=== PATIENT | male | born 1995 | race American Indian/Alaskan Native ===

== ENCOUNTER 2017-08-06 13:22 | Inpatient (IN) | payer BC, MEDICAID ==
[2017-08-06 14:26] VITALS: BMI 21.2
--- NOTE | 2017-08-06 15:03 | RAD ---
HISTORY: pes eval COMPARISON: No prior. FINDINGS: LUNGS: No active pulmonary disease. PLEURA: No significant pleural effusion identified, no pneumothorax apparent. CARDIOVASCULAR: Normal. OSSEOUS STRUCTURES: No significant abnormalities. VISUALIZED UPPER ABDOMEN: Normal. OTHER FINDINGS: None. IMPRESSION: No active disease.
[2017-08-06 17:08] LABS: BASO # 0.01 K/mm3 (0.0-2.0); BASO % 0.2 % (0.0-3.0); EOS # 0.1 (0.0-0.7); EOS % 2.2 % (1.5-5.0); GRAN # 2.75 (1.4-6.5); LYMPH # 2.7 (1.2-3.4); LYMPH % 44.6 % (22.0-35.0); MEAN CELL VOLUME 86.2 fl (80.0-105.0); MEAN CORPUSCULAR HEMOGLOBIN 28.7 pg (25.0-35.0); MEAN CORPUSCULAR HGB CONC 33.3 g/dl (31.0-37.0); MEAN PLATELET VOLUME 9.2 fl (7.0-11.0); MONO # 0.4 (0.1-0.6); RBC 4.87 10^6/uL (3.5-6.1); RED CELL DISTRIBUTION WIDTH 12.6 % (11.5-14.5)
[2017-08-06 17:15] LABS: ALB/GLOB RATIO 1.3 (1.1-1.8); ALBUMIN 3.8 g/dL (3.0-4.8); ALT/SGPT 24 U/L (7-56); AST/SGOT 36 U/L (17-59); BLOOD UREA NITROGEN 9 mg/dL (7-21); CALCIUM 9.7 mg/dL (8.4-10.5); GFR AFRICAN-AMERICAN > 60; GFR NON-AFRICAN AMERICAN > 60
--- NOTE | 2017-08-06 17:20 | ED PDOC ---
Arrival/HPI - General Chief Complaint: Psychiatric Evaluation Time Seen by Provider: 08/06/17 14:33 Historian: Patient - History of Present Illness Narrative History of Present Illness (Text): 08/06/17 17:14 21-year-old male presents today with anxiety and depression with thoughts of suicide. Patient denies headache dizziness or weakness. Denies fevers or chills. No nausea vomiting diarrhea constipation. Denies urinary symptoms. Patient denies alcohol use. Patient denies suicidal plan. No other complaints Symptom Onset: Gradual Past Medical History - Provider Review Nursing Documentation Reviewed: Yes - Travel History Have you recently traveled outside [place] w/in the past 3 mons?: No - Infectious Disease Hx of Infectious Diseases: None - Musculoskeletal/Rheumatological Other/Comment: Scoliosis - Psychiatric Hx Substance Use: Yes - Anesthesia Hx Anesthesia: No Family/Social History - Physician Review Nursing Documentation Reviewed: Yes Family/Social History: Unknown Family HX Smoking Status: Light Smoker < 10 Cigarettes Daily Hx Alcohol Use: Yes Frequency of alcohol use: Socially Hx Substance Use: Yes Substance used: marijuana Allergies/Home Meds Allergies/Adverse Reactions: Allergies No Known Allergies Allergy (Verified 08/06/17 14:08) Home Medications: Home Meds Medication Instructions Recorded Confirmed No Known Home Med 08/06/17 08/06/17 Review of Systems - Review of Systems Constitutional: absent: Fatigue, Fevers Respiratory: absent: SOB, Cough Cardiovascular: absent: Chest Pain, Palpitations Gastrointestinal: absent: Abdominal Pain, Nausea, Vomiting Genitourinary Male: absent: Dysuria Musculoskeletal: absent: Arthralgias, Back Pain Skin: absent: Rash, Pruritis Psychiatric: Anxiety, Depression, Suicidal Ideation Physical Exam Vital Signs Reviewed: Yes Vital Signs Temp Pulse Resp BP Pulse Ox 08/06/17 16:26 98.1 F 90 18 122/70 100 08/06/17 14:15 98.9 F 99 H 18 134/89 99 Temperature: Afebrile Blood Pressure: Normal Pulse: Regular Respiratory Rate: Normal Appearance: Positive for: Well-Appearing, Non-Toxic, Comfortable Pain Distress: None Mental Status: Positive for: Alert and Oriented X 3 - Systems Exam Head: Present: Atraumatic Mouth: Present: Moist Mucous Membranes Neck: Present: Normal Range of Motion Respiratory/Chest: Present: Clear to Auscultation, Good Air Exchange. No: Respiratory Distress, Accessory Muscle Use Cardiovascular: Present: Regular Rate and Rhythm, Normal S1, S2. No: Murmurs Abdomen: No: Tenderness, Rebound, Guarding Upper Extremity: Present: Normal Inspection Lower Extremity: Present: Normal Inspection. No: Edema Neurological: Present: GCS=15, Speech Normal Skin: Present: Warm, Dry, Normal Color. No: Rashes Psychiatric: Present: Alert, Oriented x 3, Depressed Mood, Suicidal Ideation Medical Decision Making ED Course and Treatment: 08/06/17 17:15 Patient is nontoxic well-appearing in no distress vital signs are stable. CBC WNL CMP WNL Tylenol WNL Salicylate WNL Alcohol level WNL Urine drug screen + marijuana UA; wnl cxr: wnl ekg sinus bradycardia at 55 bpm normal axis normal intervals no ST elevations pt is medically cleared for PES evaluation Patient was seen and evaluated by PES screener. pt signed voluntarily to psychiatric floor for depression Impression; depression Admit behavioral health floor Reassessment Condition: Re-examined - Lab Interpretations Lab Results: 08/06/17 16:50 08/06/17 16:50 Lab Results 08/06/17 17:32: Urine Opiates Screen Negative, Urine Methadone Screen Negative, Ur Barbiturates Screen Negative, Ur Phencyclidine Scrn Negative, Ur Amphetamines Screen Negative, U Benzodiazepines Scrn Negative, U Oth Cocaine Metabols Negative, U Cannabinoids Screen Positive H 08/06/17 17:32: Urine Color Yellow, Urine Appearance Clear, Urine pH 6.0, Ur Specific Moroni 1.025, Urine Protein Negative, Urine Glucose (UA) Negative, Urine Ketones 15 H, Urine Blood Negative, Urine Nitrate Negative, Urine Bilirubin Negative, Urine Urobilinogen 0.2, Ur Leukocyte Esterase Negative 08/06/17 16:50: Alcohol, Quantitative < 10 08/06/17 16:50: Sodium 139, Potassium 3.9, Chloride 103, Carbon Dioxide 27, Anion Gap 13, BUN 9, Creatinine 0.7 L, Est GFR ( Amer) > 60, Est GFR (Non -Af Amer) > 60, Random Glucose 86, Calcium 9.7, Total Bilirubin 0.3, AST 36, ALT 24, Alkaline Phosphatase 56, Total Protein 6.8, Albumin 3.8, Globulin 3.0, Albumin/Globulin Ratio 1.3 08/06/17 16:50: WBC 6.0, RBC 4.87, Hgb 14.0, Hct 42.0, MCV 86.2, MCH 28.7, MCHC 33.3, RDW 12.6, Plt Count 218, MPV 9.2, Gran % 46.0 L, Lymph % (Auto) 44.6 H, [place] % (Auto) 7.0 H, Eos % (Auto) 2.2, Baso % (Auto) 0.2, Gran # 2.75, Lymph # ( Auto) 2.7, [place] # (Auto) 0.4, Eos # (Auto) 0.1, Baso # (Auto) 0.01 - RAD Interpretation Radiology Orders: 08/06/17 14:33 CHEST PORTABLE [RAD] Stat Disposition/Present on Arrival - Present on Arrival Any Indicators Present on Arrival: No History of DVT/PE: No History of Uncontrolled Diabetes: No Urinary Catheter: No History of Decub. Ulcer: No History Surgical Site Infection Following: None - Disposition Have Diagnosis and Disposition been Completed?: Yes Diagnosis: Depression Disposition: HOSPITALIZED Disposition Time: 18:44 Patient Plan: Admission Patient Problems: Current Active Problems Problem Status Onset Depression Acute Condition: FAIR Referrals: Neli Macedo MD [Primary Care Provider] - Follow up with primary Forms: [employer] ([employer])
[2017-08-06 17:44] LABS: URINE BILIRUBIN NEGATIVE (NEGATIVE); URINE BLOOD NEGATIVE (NEGATIVE); URINE GLUCOSE (UA) NEGATIVE (NEGATIVE); URINE LEUKOCYTE ESTERASE NEGATIVE Leu/uL (NEGATIVE); URINE NITRATE NEGATIVE (NEGATIVE); URINE PROTEIN NEGATIVE mg/dL (<30 mg/dL); URINE UROBILINOGEN 0.2 E.U./dL (<1 E.U./dL)
[2017-08-06 17:56] LABS: URINE APPEARANCE CLEAR (CLEAR); URINE COLOR YELLOW (YELLOW)
[2017-08-06 18:33] LABS: BARBITURATES, UR NEGATIVE (NEGATIVE); BENZODIAZEPINES, UR NEGATIVE (NEGATIVE); OPIATES, UR NEGATIVE (NEGATIVE); PHENCYCLIDINE, UR NEGATIVE (NEGATIVE)
[2017-08-06 18:44] LABS: ACETAMINOPHEN < 10.0 ug/ml (10.0-20.0); SALICYLATE < 1 mg/dL (2.0-20.0)
[2017-08-06] MEDS ORDERED: Magnesium Hydroxide Susp 30 ml UD PO PRN (20:17)
[2017-08-06] MEDS ORDERED: Alum-Mag Hydrox-Simethicone Susp (30 mL) PO PRN (20:17)
--- NOTE | 2017-08-07 00:29 | PCM.BM ---
<Lázaro Alvarenga - Last Filed: 08/07/17 00:32> Treatment Plan Problems - Problems identified on initial assessmt SUICIDAL IDEATION Date Initiated: 08/06/17 Time Initiated: 21:00 Assessment reference: NA Status: Active DEPRESSION Date Initiated: 08/06/17 Time Initiated: 21:00 Assessment reference: NA Status: Active SUBSTABCE ABUSE Date Initiated: 08/06/17 Time Initiated: 21:00 Assessment reference: NA Status: Active Treatment assets and liabiliti Patient Assests: adapts well, cooperative, educated, motivated, self-reliant, ADL independent, physically healthy, good support system, negotiates basic needs , cognitively intact Patient Liabilities: live alone, financial problems, substance abuse - Milieu Protocol Maintain good personal hygiene: daily Encourage regular showers, daily Remind patient to perform daily oral care, daily Assist patient to perform ADL's Maintain personal safety: every shift Educate patient to report safety concerns to staff, every shift Monitor environment for contraband/sharps Medication safety: Monitor for expected outcome, potential side effects: every shift, Assess barriers to learning: every shift, Assess readiness for medication education: every shift Family Contact Family involvement: Family/SO is involved Family contact: Patient agrees to contact <Falguni Campbell - Last Filed: 08/07/17 10:12> - Diagnosis (1) Depression Status: Acute Interventions: Psychoeducation Psychopharmacology/adjustment of medications as needed/ monitoring possible side effects Evaluate pt on daily basis Compliance with medications and follow up appointments Suicide and homicide risk assessment and prevention Relapse prevention Reduction of symptoms Improve functional status Family involvement As outpatient: cognitive behavioral therapy 08/07/17 10:12 <Maria C Burgos - Last Filed: 08/08/17 08:18> Family Contact Family involvement: Famliy/SO not involved <Kaur Gomez - Last Filed: 08/08/17 12:15>
[2017-08-07 07:58] LABS: GLUCOSE,FASTING 86 mg/dL (65-110); HDL CHOLESTEROL 53 mg/dL (29-60)
[2017-08-07 08:09] LABS: LDL CHOLESTEROL 66 mg/dL (0-129)
--- NOTE | 2017-08-07 12:35 | CARD ---
APPROVED REPORT EKG Measurement Heart [id number] <Conclusion> Sinus bradycardia Early repolarization Otherwise normal ECG
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
--- NOTE | 2017-08-07 21:02 | CON ---
DATE: HISTORY OF PRESENT ILLNESS: I was called up to the Psychiatric Unit to see this young man. He is very nice. I saw him in his room. He is a 21-year-old male, who presents with anxiety, depression, thoughts of suicide and he is here in the Psychiatric Unit. He is feeling okay, not great. PAST MEDICAL HISTORY: He has scoliosis in the past. He has substance abuse. FAMILY HISTORY: Unknown family history. SOCIAL HISTORY: Still smoking cigarettes, still drinking alcohol, does marijuana. ALLERGIES: No known drug allergies. MEDICATIONS: No medications at home. REVIEW OF SYSTEMS: No acute vision or hearing changes. No fatigue. No fever. No sore throat. No neck pain. No chest pain. No palpitations. No shortness of breath. No cough. No abdominal pain, nausea, vomiting, constipation or diarrhea. No problems with urinating. No back pain or leg pain. No rashes or ulcers. He is a little anxious, depressed and suicidal. PHYSICAL EXAMINATION: VITAL SIGNS: He has 98.1 temperature, 90 pulse, 18 respiratory rate, 122/70 blood pressure, and 100% O2 sat. HEENT: His head is atraumatic, normocephalic. Extraocular muscles are intact. Pupils are equal and reactive to light and accommodation. Throat is moist. NECK: Supple. Thyroid midline. HEART: Regular rate. Normal S1, S2. LUNGS: Decreased breath sounds, but clear to auscultation bilaterally. No wheezes, no rhonchi, no rales. ABDOMEN: Soft, nontender. Positive bowel sounds. No guarding. No rebound. No CVA tenderness. EXTREMITIES: No edema. NEUROLOGIC: GCS is 15. Cranial nerves II through XII grossly intact. Normal speech. Tongue is midline. He can close his eyes tight, he can frown, he can smile, he can raise his arms over his head. Neurologically, he is intact. SKIN: Warm and dry. No apparent rashes or ulcers. LYMPH NODES: No palpable appreciable lymphadenopathy. PSYCHIATRIC: Alert and oriented x3, just feeling depressed. LABORATORY DATA: He had an EKG showing sinus ian at 55. He had lab test. He has a urine drug screen showing positive for marijuana. His urine test is negative. He has a 139 sodium, potassium 3.9, BUN 9, and creatinine 0.7. GFR is greater than 60, sugar is 86, calcium is 9.7, total bili is 0.3, AST is 36, ALT is 24, and alk phos 66, total protein is 6.8., albumin is 3.8, triglycerides 53, and cholesterol 136. His TSH is low at 0.15. I will repeat that tomorrow, could be stress related. White count 6, hemoglobin 14, hematocrit 42, and platelets are 218. Overall, chest x-ray was okay. He is here for depression, substance abuse, suicidal thoughts, and hyperthyroid at this time with a low TSH. We will repeat that tomorrow. I encouraged him to participate, eat healthy , and to call me if they need me. I will see him tomorrow. Malvin George DO MTDD
[2017-08-08 08:15] LABS: HEMOGLOBIN 14.6 g/dL (14.0-18.0); MEAN CELL VOLUME 87.1 fl (80.0-105.0); MEAN CORPUSCULAR HEMOGLOBIN 28.5 pg (25.0-35.0); MEAN CORPUSCULAR HGB CONC 32.7 g/dl (31.0-37.0); MEAN PLATELET VOLUME 9.2 fl (7.0-11.0); RBC 5.12 10^6/uL (3.5-6.1); RED CELL DISTRIBUTION WIDTH 12.7 % (11.5-14.5); WHITE BLOOD COUNT 3.9 10^3/ul (4.5-11.0)
[2017-08-08 08:30] LABS: ALB/GLOB RATIO 1.4 (1.1-1.8); ALBUMIN 3.9 g/dL (3.0-4.8); ALT/SGPT 26 U/L (7-56); AST/SGOT 28 U/L (17-59); BLOOD UREA NITROGEN 13 mg/dL (7-21); CALCIUM 9.4 mg/dL (8.4-10.5); GFR AFRICAN-AMERICAN > 60; GFR NON-AFRICAN AMERICAN > 60
--- NOTE | 2017-08-08 13:46 | PCM.PYCHPN ---
Psychiatric Progress Note - Psychiatric Progress Note Patient seen today, length of contact: 25 Patient Chief Complaint: "I am less anxious" Problems Identified/Issues Discussed: Patient is a 23 year old male single, never , of average height and slim of build. He was seen today in treatment team. His hygiene and grooming are good. He is extremely talkative, overproductive, circumstantial. and tangential in speech. He is cooperative with the interview and remains pleasant and cooperative throughout. It is hard to get specific answers to questions, not from resistance but from disorganization. He has only been sleeping 4 hours a night, appetite is erratic, he is tangential and circumstantial and does not always make sense. He indicates he has periods of intense anger but has no history of violence. His symptoms have all started since age of 18. Patient is seen in a common area of the unit. His hygiene and grooming are good , affect is full. Speech continues pressured and tangential. Patient indicates that he is tolerating the medication well and is not feeling anxious and is less paranoid. He slept better and longer. Is willing to increase the Seroquel, but only by another 25mg at night. We discussed symptoms and the effect that weed can have on his mental health. Diagnosis reviewed, patient is amenable to outpatient treatment and understands the need for this. Talks about how difficult it is for him to stay on task and how he has to speak very fast to get thoughts out before he forgets them. Pleasant and cooperative, insight into illness and circumstances surrounding it poor. Is willing to consider strongly not continuing to smoke pot. Medical Problems: Denied Diagnostic Results: Laboratory Results - last 24 hr 08/07/17 08/08/17 08/08/17 07:30 07:50 07:50 WBC 3.9 L D RBC 5.12 Hgb 14.6 Hct 44.6 MCV 87.1 MCH 28.5 MCHC 32.7 RDW 12.7 Plt Count 225 MPV 9.2 Sodium 140 Potassium 4.5 Chloride 102 Carbon Dioxide 30 Anion Gap 12 BUN 13 Creatinine 1.0 Est GFR ( Amer) > 60 Est GFR (Non-Af Amer) > 60 Random Glucose 90 Calcium 9.4 Total Bilirubin 0.3 AST 28 ALT 26 Alkaline Phosphatase 45 Total Protein 6.8 Albumin 3.9 Globulin 2.9 Albumin/Globulin Ratio 1.4 TSH 3rd Generation RPR Nonreactive 08/08/17 07:50 WBC RBC Hgb Hct MCV MCH MCHC RDW Plt Count MPV Sodium Potassium Chloride Carbon Dioxide Anion Gap BUN Creatinine Est GFR ( Amer) Est GFR (Non-Af Amer) Random Glucose Calcium Total Bilirubin AST ALT Alkaline Phosphatase Total Protein Albumin Globulin Albumin/Globulin Ratio TSH 3rd Generation 0.27 L RPR Temp Pulse Resp BP Pulse Ox 97.8 F 75 20 121/74 99 08/08/17 07:16 08/08/17 07:16 08/08/17 07:16 08/08/17 07:16 08/06/17 19:10 Medication Change: Yes (HS Seroquel increased) Medical Record Reviewed: Yes Consults ordered or reviewed: Patient healthy, medically cleared in the Emergency Room Mental Status Examination - Cognitive Function Orientation: Person, Place, Situation, Time - Mood Mood: Anxious - Affect Affect: Broad - Formal Thought Process Formal Thought Process: Paranoia, Circumstantial - Homicidal Ideation Homicidal Ideation: No Goal/Treatment Plan - Goal/Treatment Plan Progress Toward Problem(s) and Goals/Treatment Plan: Milieu/structure/supportive therapy Medical consult appreciated, see medical team note for more detailed info SW consultation for discharge plan and social issues Med management Family involvement Follow up on labs Will monitor closely SW evaluation for d/c planning Pt was educated about risk/benefits and alternatives of medications, coping strategies (safety plan, suicide prevention), relapse prevention, importance of follow up with psychiatrist and therapist, stay away from drugs/alcohol/smoking Medication Rationale: Seroquel 25mg BID and Seroquel 50mg HS to help with mood, paranoia, and sleep, plan would be to taper up as needed/ tolerated. Will consider addition of Depakote for further mood stabilization.
--- NOTE | 2017-08-08 14:19 | PN ---
DATE: SUBJECTIVE: I saw him resting comfortably in bed this morning. He slept well. He is in good spirits. He tells me he is feeling better. He is on Ativan, Geodon, Maalox, milk of magnesia, Nicoderm, Seroquel, Sonata, and Tylenol. He also tells me that the depression is not still back right now and he is comfortable. I did repeat a blood test on because his thyroid was off. We will check that. PHYSICAL EXAMINATION: VITAL SIGNS: He has 97.8 temperature, 75 pulse, 121/74 blood pressure, 20 respiratory rate. GENERAL: He is eating well. HEENT: Head is atraumatic, normocephalic. HEART: Regular rate. LUNGS: Clear to auscultation. ABDOMEN: Soft. EXTREMITIES: No edema. LABORATORY DATA: He has a 3.9 white count, 14.6 hemoglobin, 44.6 hematocrit, and 225 platelets. Sodium 140, potassium 4.5. BUN is 13, creatinine is 1. GFR is greater than 60. Sugar is 90. Calcium is 9.4. Total bili is 0.3, AST is 28, ALT is 26, alk phos is 45, total protein 6.8. Still waiting for the TSH repeat to come back. His serum screen toxicology was positive for marijuana. Chest x-ray with no active disease. ASSESSMENT AND PLAN: He has bipolar, drug abuse. I am waiting for the TSH repeat to come back. I will watch him closely. Malvin George DO
--- NOTE | 2017-08-09 12:16 | PN ---
DATE: SUBJECTIVE: I saw him resting comfortably in bed. He slept well last night. He has no complaints to me. He is eating well, going to the bathroom well. He is trying to do well in therapy. He is on Ativan, Geodon, Maalox, milk of magnesia, Nicoderm, Seroquel, Sonata, and Tylenol. OBJECTIVE: VITAL SIGNS: He has 97.7 temperature, 72 pulse, 115/89 blood pressure, 20 respiratory rate. HEENT: Head is atraumatic, normocephalic. HEART: Regular rate. LUNGS: Clear to auscultation. ABDOMEN: Soft, nontender. EXTREMITIES: No edema. LABORATORY DATA: He has a 3.9 white count, 40.6 hemoglobin, 225 platelets. Sodium 140, potassium 4.5. BUN 30, creatinine one 1. GFR is 60. Sugar is 90. Calcium is 9.4. AST is 20, ALT is 26, alk phos 45. His TSH went from 0.15 to 0.27, still low. I am going to repeat one more tomorrow. If that is still low, I will call Endocrinology. I am still taking his stress is going to come up and will see how he does with his TSH tomorrow. We will continue to follow Mr. Franco for his depression, suicidal ideation, substance abuse, marijuana, hyperparathyroid with bipolar. We will check another TSH tomorrow. Malvin George DO
--- NOTE | 2017-08-09 14:20 | PCM.PYCHPN ---
Psychiatric Progress Note - Psychiatric Progress Note Patient seen today, length of contact: 25 Patient Chief Complaint: "I think the medication is helping" Problems Identified/Issues Discussed: Patient is a 23 year old male single, never , of average height and slim of build. He was seen today in treatment team. His hygiene and grooming are good. He is extremely talkative, overproductive, circumstantial. and tangential in speech. He is cooperative with the interview and remains pleasant and cooperative throughout. It is hard to get specific answers to questions, not from resistance but from disorganization. He has only been sleeping 4 hours a night, appetite is erratic, he is tangential and circumstantial and does not always make sense. He indicates he has periods of intense anger but has no history of violence. His symptoms have all started since age of 18. Patient is seen in a common area of the unit. His hygiene and grooming are good , affect is full. Speech less pressured and initially is less tangential but actually worsens with contact. patient indicates this is because he is trying so hard to organize his thoughts. Tried to discuss with patient his reasons for not having his family involved but was unable to get a clear answer that makes sense. Patient brings up that he had a homosexual encounter one time that he shared with his sister and she told other family members and he always worries people are talking about him. Indicates that he identifies as heterosexual, that was an experimentation. Indicates the medication is lessening his paranoia and he slept all night last night. He has not had any episodes of intense anger. Is willing to increase the seroquel and agrees to consider a mood stabilizer. Medical Problems: Denied Diagnostic Results: Laboratory Results - last 24 hr 08/07/17 08/08/17 08/08/17 07:30 07:50 07:50 WBC 3.9 L D RBC 5.12 Hgb 14.6 Hct 44.6 MCV 87.1 MCH 28.5 MCHC 32.7 RDW 12.7 Plt Count 225 MPV 9.2 Sodium 140 Potassium 4.5 Chloride 102 Carbon Dioxide 30 Anion Gap 12 BUN 13 Creatinine 1.0 Est GFR ( Amer) > 60 Est GFR (Non-Af Amer) > 60 Random Glucose 90 Calcium 9.4 Total Bilirubin 0.3 AST 28 ALT 26 Alkaline Phosphatase 45 Total Protein 6.8 Albumin 3.9 Globulin 2.9 Albumin/Globulin Ratio 1.4 TSH 3rd Generation RPR Nonreactive 08/08/17 07:50 WBC RBC Hgb Hct MCV MCH MCHC RDW Plt Count MPV Sodium Potassium Chloride Carbon Dioxide Anion Gap BUN Creatinine Est GFR ( Amer) Est GFR (Non-Af Amer) Random Glucose Calcium Total Bilirubin AST ALT Alkaline Phosphatase Total Protein Albumin Globulin Albumin/Globulin Ratio TSH 3rd Generation 0.27 L RPR Temp Pulse Resp BP Pulse Ox 97.8 F 75 20 121/74 99 08/08/17 07:16 08/08/17 07:16 08/08/17 07:16 08/08/17 07:16 08/06/17 19:10 Temp Pulse Resp BP Pulse Ox 97.7 F 72 20 115/89 99 08/09/17 07:08 08/09/17 07:08 08/09/17 07:08 08/09/17 07:08 08/06/17 19:10 Medication Change: Yes (Seroquel increased) Medical Record Reviewed: Yes Consults ordered or reviewed: Patient healthy, medically cleared in the Emergency Room Mental Status Examination - Cognitive Function Orientation: Person, Place, Situation, Time - Mood Mood: Anxious - Affect Affect: Broad - Formal Thought Process Formal Thought Process: Paranoia, Circumstantial - Homicidal Ideation Homicidal Ideation: No Goal/Treatment Plan - Goal/Treatment Plan Progress Toward Problem(s) and Goals/Treatment Plan: Milieu/structure/supportive therapy Medical consult appreciated, see medical team note for more detailed info SW consultation for discharge plan and social issues Med management Family involvement Follow up on labs Will monitor closely evaluation for d/c planning Pt was educated about risk/benefits and alternatives of medications, coping strategies (safety plan, suicide prevention), relapse prevention, importance of follow up with psychiatrist and therapist, stay away from drugs/alcohol/smoking Medication Rationale: Seroquel 25mg BID and Seroquel 50mg HS to help with mood, paranoia, and sleep, plan would be to taper up as needed/ tolerated. Will consider addition of Depakote for further mood stabilization.
--- NOTE | 2017-08-10 14:45 | PN ---
DATE: SUBJECTIVE: I saw him resting comfortably in bed. He is feeling well. He is eating well, going to the bathroom well. Participating in groups. MEDICATIONS: He is on Ativan, Geodon, Maalox, milk of magnesia, NicoDerm, Seroquel, Sonata, and Tylenol. There are no new complaints PHYSICAL EXAMINATION VITAL SIGNS: He has 97.9 temperature, 64 pulse, 103/59 blood pressure, 20 respiratory rate. HEENT: Head is atraumatic, normocephalic. HEART: Regular rate. LUNGS: Clear to auscultation. ABDOMEN: Soft. EXTREMITIES: No edema. LABORATORY DATA: Last labs were on and he did well. Repeat another TSH later this morning. He is here for depression, suicidal ideation, substance abuse, possible hyperthyroid and bipolar. We will wait and we will see what the lab test say participating in groups. Malvin George DO MTDD
--- NOTE | 2017-08-10 16:32 | PCM.PYCHPN ---
Psychiatric Progress Note - Psychiatric Progress Note Patient seen today, length of contact: 25 Patient Chief Complaint: "I don't feel so paranoid" Problems Identified/Issues Discussed: Patient is a 23 year old male single, never , of average height and slim of build. He was seen today in treatment team. His hygiene and grooming are good. He is extremely talkative, overproductive, circumstantial. and tangential in speech. He is cooperative with the interview and remains pleasant and cooperative throughout. It is hard to get specific answers to questions, not from resistance but from disorganization. He has only been sleeping 4 hours a night, appetite is erratic, he is tangential and circumstantial and does not always make sense. He indicates he has periods of intense anger but has no history of violence. His symptoms have all started since age of 18. Patient is seen in a common area of the unit. His hygiene and grooming are good , affect is full. Patient is more organized in conversation and feels the medication is effective. He indicates that his paranoia is decreasing, he is much more comfortable around the other patients. He feels that the groups are helpful and his mood has been leveling as well. He does not feel that he needs a mood stabilizer at this time, he is less pressured but still his conversation does not always make sense. He is cooperative with unit routines, AIMS exam is negative. Discharge is tentatively scheduled for Sunday. Medical Problems: Denied Diagnostic Results: Laboratory Results - last 24 hr 08/07/17 08/08/17 08/08/17 07:30 07:50 07:50 WBC 3.9 L D RBC 5.12 Hgb 14.6 Hct 44.6 MCV 87.1 MCH 28.5 MCHC 32.7 RDW 12.7 Plt Count 225 MPV 9.2 Sodium 140 Potassium 4.5 Chloride 102 Carbon Dioxide 30 Anion Gap 12 BUN 13 Creatinine 1.0 Est GFR ( Amer) > 60 Est GFR (Non-Af Amer) > 60 Random Glucose 90 Calcium 9.4 Total Bilirubin 0.3 AST 28 ALT 26 Alkaline Phosphatase 45 Total Protein 6.8 Albumin 3.9 Globulin 2.9 Albumin/Globulin Ratio 1.4 TSH 3rd Generation RPR Nonreactive 08/08/17 07:50 WBC RBC Hgb Hct MCV MCH MCHC RDW Plt Count MPV Sodium Potassium Chloride Carbon Dioxide Anion Gap BUN Creatinine Est GFR ( Amer) Est GFR (Non-Af Amer) Random Glucose Calcium Total Bilirubin AST ALT Alkaline Phosphatase Total Protein Albumin Globulin Albumin/Globulin Ratio TSH 3rd Generation 0.27 L RPR Temp Pulse Resp BP Pulse Ox 97.8 F 75 20 121/74 99 08/08/17 07:16 08/08/17 07:16 08/08/17 07:16 08/08/17 07:16 08/06/17 19:10 Temp Pulse Resp BP Pulse Ox 97.7 F 72 20 115/89 99 08/09/17 07:08 08/09/17 07:08 08/09/17 07:08 08/09/17 07:08 08/06/17 19:10 Temp Pulse Resp BP Pulse Ox 97.9 F 100 H 20 137/77 99 08/10/17 07:17 08/10/17 16:01 08/10/17 07:17 08/10/17 16:01 08/06/17 19:10 Medication Change: No Medical Record Reviewed: Yes Consults ordered or reviewed: Patient healthy, medically cleared in the Emergency Room Mental Status Examination - Cognitive Function Orientation: Person, Place, Situation, Time - Mood Mood: Anxious - Affect Affect: Broad - Formal Thought Process Formal Thought Process: Paranoia, Circumstantial - Homicidal Ideation Homicidal Ideation: No Goal/Treatment Plan - Goal/Treatment Plan Progress Toward Problem(s) and Goals/Treatment Plan: Milieu/structure/supportive therapy Medical consult appreciated, see medical team note for more detailed info consultation for discharge plan and social issues Med management Family involvement Follow up on labs Will monitor closely evaluation for d/c planning Pt was educated about risk/benefits and alternatives of medications, coping strategies (safety plan, suicide prevention), relapse prevention, importance of follow up with psychiatrist and therapist, stay away from drugs/alcohol/smoking Medication Rationale: Seroquel 25mg BID and Seroquel 50mg HS to help with mood, paranoia, and sleep, plan would be to taper up as needed/ tolerated. Will consider addition of Depakote for further mood stabilization.
--- NOTE | 2017-08-11 09:27 | PCM.PYCHPN ---
Psychiatric Progress Note - Psychiatric Progress Note Patient seen today, length of contact: 25 min Problems Identified/Issues Discussed: I reviewed assessment and recent notes. I met with patient at bedside. He is alert and oriented to month, year, location and circumstances. Appears well groomed and superficially friendly. He reports that he is feeling better but still annoyed about continued hospitalization. Affect is congruent however he appears to be easily redirected and reassured. Patient denies perceptual disturbance and doesn't appear to be responding to internal stimuli. He is tolerating his medications and denies any new discomfort or pain. Staff notes indicate the patient has been visible on the unit and generally compliant with staff requests. He can be labile, affect has been described as constricted, anxious and irritable. Has been socializing with select peers. No bizarre behaviors noted. There were no behavioral issues overnight. Of note: I was contacted by nursing at 9:10 am about patient's agitated behavior which didn't appear to have any precipitants. Patient agreed to take geodon and ativan po. Will monitor patient's behavior which is unpredictable at this time. Diagnostic Results: Bipolar Disorder Unspecified R/O Schizophrenia Cannabis Use Disorder, Chronic, Severe, Habitual R/O Drug Induced Psychosis Medication Change: No Medical Record Reviewed: Yes Mental Status Examination - Cognitive Function Orientation: Person, Place, Situation, Time - Mood Mood: Anxious - Affect Affect: Broad, Other (angry, labile) - Formal Thought Process Formal Thought Process: Paranoia, Circumstantial - Suicidal Ideation Suicidal Ideation: No - Homicidal Ideation Homicidal Ideation: No Goal/Treatment Plan - Goal/Treatment Plan Progress Toward Problem(s) and Goals/Treatment Plan: c/w current tx and plan Geodon and ativan prns for agitation New weekend labs noted below: 08/11/17 08:26 TSH 3rd Generation 0.55 Vitals reviewed and noted below: 08/11/17 07:16 Temperature 97.6 F Pulse Rate 61 Respiratory 20 Rate Blood Pressure 111/64
--- NOTE | 2017-08-11 17:41 | PN ---
DATE: SUBJECTIVE: I saw him in the dining room of . He is comfortable. He has had a rough morning, but he did not tell me about that. I got the information from the nurses, he is eating well. He is on Ativan, Geodon, Maalox, milk of magnesia, Nicoderm, Seroquel, Sonata and Tylenol. PHYSICAL EXAMINATION: VITAL SIGNS: 97.6 temp, 61 pulse, 111/64 blood pressure, 20 respiratory rate. HEART: Regular rate. LUNGS: Clear to auscultation. EXTREMITIES: No edema. LABORATORY DATA: He had labs on the , he did well. He had another chemistry, finally his TSH came up to normal TSH is now back to normal. ASSESSMENT AND PLAN: He had an explosive morning somehow, but he told me that he was told he was going to be discharged today, somebody said that to him and then when it did not happen, he got very violent and tore things and threw things and broke things, so he is in not a good spirit and I told him that is not the way he is going to get out of this floor and he said he did not care. As per Psychiatry, encouragement to participate to take the medications to get out of here. depression, suicidal ideation, substance abuse history, bipolar and status post low thyroid stimulating hormone, which is now normalized. aMlvin George DO MTDD
--- NOTE | 2017-08-12 09:16 | PCM.PYCHPN ---
Psychiatric Progress Note - Psychiatric Progress Note Patient seen today, length of contact: 25 min Patient Chief Complaint: "medications are partially helpful" Problems Identified/Issues Discussed: I reviewed recent staff notes. My progress note yesterday indicated that patient became angry and broke a nightstand after taking his AM medications. This behavior was a little surprising considering he seemed to be in fair control when seen by nursing and this provider earlier in the morning. He did appear a little irritable but in control. Nevertheless patient readily took Geodon and Ativan prns after the incident. He remained calm for the rest of the day and there were no further behavioral problems. He seemed remorseful about losing control. I meet with patient at bedside again this morning. He is alert and oriented to month, year, location and circumstances. Appears well groomed and superficially interacts with me. He doesn't really want to discuss yesterday's incident. Reports that he is better and feels less irritable today. Affect is guarded and still mildly edgy. Patient is tolerating medications but feels they are only partially beneficial. Patient still complains of anxiety and had trouble going back to sleep after 2 am very early this morning. Diagnostic Results: Bipolar Disorder Unspecified R/O Schizophrenia Cannabis Use Disorder, Chronic, Severe, Habitual R/O Drug Induced Psychosis Medication Change: Yes (Seroquel increased from 50/50/100 to 50/50/150) Medical Record Reviewed: Yes Mental Status Examination - Cognitive Function Orientation: Person, Place, Situation, Time Attention: WNL - Mood Mood: Anxious - Affect Affect: Broad, Other (angry, labile) - Formal Thought Process Formal Thought Process: Paranoia, Circumstantial - Suicidal Ideation Suicidal Ideation: No - Homicidal Ideation Homicidal Ideation: No Goal/Treatment Plan - Goal/Treatment Plan Progress Toward Problem(s) and Goals/Treatment Plan: * c/w current tx and plan * Appreciate f/u by Dr. George on 08/11/17 * Geodon and ativan prns for agitation * Seroquel increased from 50/50/100 to 50/50/150 on 08/12/17 to help with mood and impulse control. This will also help, off label, for sleep. * New weekend labs noted below: 08/11/17 08:26 TSH 3rd Generation 0.55 * Vitals reviewed and noted below: Selected Entries 08/12/17 06:54 Temperature 97.8 F Pulse Rate 78 Respiratory 20 Rate Blood Pressure 113/70
--- NOTE | 2017-08-12 11:03 | PN ---
DATE: SUBJECTIVE: I saw eating breakfast. He slept well last night. No acute medical problems for me. He does feel better than his episodes yesterday, but he was a little bit violent. He is on Ativan, Geodon, Maalox, milk of magnesia, Nicoderm, Seroquel, Sonata and Tylenol. The nurse has said he had a very peaceful night and peaceful morning. PHYSICAL EXAMINATION VITAL SIGNS: He has 97.8 temperature, 78 pulse, 115/70 blood pressure, 20 respiratory rate. HEART: Regular rate. LUNGS: Clear to auscultation. LABORATORY DATA: Last labs on the and he did well. Last TSH was 0.55 and normal, so it is most probably stress related. ASSESSMENT AND PLAN: He is being seen by Psychiatry. He is here for depression, suicidal ideation, substance abuse, bipolar and he did have TSH's that were quite low, which has now normalized. We did follow him. I encouraged him to participate in groups, be calm, take medication, eat and that is the best way to get out of the psychiatric floor. Malvin George DO
--- NOTE | 2017-08-13 13:04 | PN ---
DATE: SUBJECTIVE: I saw him resting comfortably in bed. He slept fairly well last night. He has no complaints. He is eating well. He has an appetite. He is trying to improve with psychological problems . He is on Ativan, Geodon, milk of magnesia, Maalox, NicoDerm, Seroquel, Sonata and Tylenol. OBJECTIVE VITAL SIGNS: Temperature 97.7, 95 pulse, 133/74 blood pressure, 20 respiratory rate. HEART: Regular rate. LUNGS: Clear to auscultation. EXTREMITIES: No edema. Overall, he is doing fairly well. He is trying to improve. No complaints this morning. He is asking about discharge. psychiatrist. He will continue with aggressive treatment and care on [facility] Franco with depression, suicidal ideation, substance abuse, bipolar. He had a moment of hypothyroid, which went away to euthyroid. Malvin George DO MTDD
--- NOTE | 2017-08-13 14:01 | PCM.PYCHPN ---
Psychiatric Progress Note - Psychiatric Progress Note Patient seen today, length of contact: 25 min Patient Chief Complaint: "I want to go home, I think you are punishing me" Problems Identified/Issues Discussed: Patient is a 23 year old male single, never , of average height and slim of build. He was seen today in treatment team. His hygiene and grooming are good. He is extremely talkative, overproductive, circumstantial. and tangential in speech. He is cooperative with the interview and remains pleasant and cooperative throughout. It is hard to get specific answers to questions, not from resistance but from disorganization. He has only been sleeping 4 hours a night, appetite is erratic, he is tangential and circumstantial and does not always make sense. He indicates he has periods of intense anger but has no history of violence. His symptoms have all started since age of 18. Patient is seen in a common area of the unit. His hygiene and grooming are good. Patient is irritable and angry. He wants to be discharged having thrown and damaged a nightstand reportedly because he wanted to be discharged. Unable to see this as inappropriate, becomes angry with me and cuts our meeting short saying "I am done here". Later he asked to sign 48 hour notice, met with him again reiterating my concerns regarding his impulse control. His affect and thought organization have improved. Will optimize Seroquel to help with impulse control and irritability. Medical Problems: Denied Diagnostic Results: Laboratory Results - last 24 hr 08/07/17 08/08/17 08/08/17 07:30 07:50 07:50 WBC 3.9 L D RBC 5.12 Hgb 14.6 Hct 44.6 MCV 87.1 MCH 28.5 MCHC 32.7 RDW 12.7 Plt Count 225 MPV 9.2 Sodium 140 Potassium 4.5 Chloride 102 Carbon Dioxide 30 Anion Gap 12 BUN 13 Creatinine 1.0 Est GFR ( Amer) > 60 Est GFR (Non-Af Amer) > 60 Random Glucose 90 Calcium 9.4 Total Bilirubin 0.3 AST 28 ALT 26 Alkaline Phosphatase 45 Total Protein 6.8 Albumin 3.9 Globulin 2.9 Albumin/Globulin Ratio 1.4 TSH 3rd Generation RPR Nonreactive 08/08/17 07:50 WBC RBC Hgb Hct MCV MCH MCHC RDW Plt Count MPV Sodium Potassium Chloride Carbon Dioxide Anion Gap BUN Creatinine Est GFR ( Amer) Est GFR (Non-Af Amer) Random Glucose Calcium Total Bilirubin AST ALT Alkaline Phosphatase Total Protein Albumin Globulin Albumin/Globulin Ratio TSH 3rd Generation 0.27 L RPR Temp Pulse Resp BP Pulse Ox 97.8 F 75 20 121/74 99 08/08/17 07:16 08/08/17 07:16 08/08/17 07:16 08/08/17 07:16 08/06/17 19:10 Temp Pulse Resp BP Pulse Ox 97.7 F 72 20 115/89 99 08/09/17 07:08 08/09/17 07:08 08/09/17 07:08 08/09/17 07:08 08/06/17 19:10 Temp Pulse Resp BP Pulse Ox 97.9 F 100 H 20 137/77 99 08/10/17 07:17 08/10/17 16:01 08/10/17 07:17 08/10/17 16:01 08/06/17 19:10 Temp Pulse Resp BP Pulse Ox 97.7 F 95 H 20 133/74 99 08/13/17 06:58 08/13/17 06:58 08/13/17 06:58 08/13/17 06:58 08/06/17 19:10 Medication Change: Yes (Seroquel increased ) Medical Record Reviewed: Yes Mental Status Examination - Cognitive Function Orientation: Person, Place, Situation, Time Attention: WNL - Mood Mood: Anxious - Affect Affect: Broad, Other (angry, labile) - Formal Thought Process Formal Thought Process: Paranoia, Circumstantial - Suicidal Ideation Suicidal Ideation: No - Homicidal Ideation Homicidal Ideation: No Goal/Treatment Plan - Goal/Treatment Plan Progress Toward Problem(s) and Goals/Treatment Plan: Milieu/structure/supportive therapy Medical consult appreciated, see medical team note for more detailed info consultation for discharge plan and social issues Med management Family involvement Follow up on labs Will monitor closely evaluation for d/c planning Pt was educated about risk/benefits and alternatives of medications, coping strategies (safety plan, suicide prevention), relapse prevention, importance of follow up with psychiatrist and therapist, stay away from drugs/alcohol/smoking Medication Rationale: Seroquel 25mg BID and Seroquel 50mg HS to help with mood, paranoia, and sleep, plan would be to taper up as needed/ tolerated. Will consider addition of Depakote for further mood stabilization.
[2017-08-13 22:43] VITALS: O2SAT 96
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
[2017-08-14 11:21] VITALS: BP 104/70; PULSE 86; RESP 18; TEMP 98
--- NOTE | 2017-08-14 14:39 | PN ---
DATE: SUBJECTIVE: I saw him in his room today. He is resting comfortably. He is feeling better. He is eating well, participating in groups. He tells me He is currently on Ativan, Geodon, Maalox, milk of magnesia, NicoDerm, Seroquel, Sonata, and Tylenol. PHYSICAL EXAMINATION: VITAL SIGNS: Temperature 97.7, 95 pulse, 133/74 blood pressure, 20 respiratory rate. HEENT: Head is atraumatic, normocephalic. HEART: Regular rate. LUNGS: Clear to auscultation. ABDOMEN: Soft. EXTREMITIES: No edema. Last labs on , he did well. Overall, he is comfortable as per Psychiatry. ASSESSMENT AND PLAN: He was here for depression, suicidal ideation, substance abuse. He had a hyperthyroid texture which came back to normal and he has bipolar, and we will follow with Psychiatry. Malvin George DO MTDD
== END 2017-08-14 14:04 | disposition home or self-care (01) | DRG 885 ==
LOC: ED 13:22 → ERH 18:45 → PSYC 19:48
PROVIDERS: ADMIT Psychiatry & Neurology Psychiatry; ATTEND Psychiatry & Neurology Psychiatry
PROC: GZ3ZZZZ Medication Management (ICD-10-PCS; principal; 2017-08-07)
DX: F20.9 Schizophrenia, unspecified (principal); R45.851 Suicidal ideations; F12.90 Cannabis use, unspecified, uncomplicated; M41.9 Scoliosis, unspecified; F41.9 Anxiety disorder, unspecified; F17.210 Nicotine dependence, cigarettes, uncomplicated

== ENCOUNTER 2018-05-08 07:35 | Inpatient (IN) | payer BC, MEDICAID ==
[2018-05-08 07:58] VITALS: BMI 22.1
--- NOTE | 2018-05-08 08:08 | ED PDOC ---
Arrival/HPI - General Chief Complaint: Psychiatric Evaluation Time Seen by Provider: 05/08/18 07:36 Historian: Patient - History of Present Illness Narrative History of Present Illness (Text): 05/08/18 08:08 22 year old male, whose past medical history includes anxiety, manic depressions, and suicidal ideation, presents to the emergency department complaining of suicidal ideation. Patient states he was up all night crying and contemplating his thoughts on school, money, work, family, etc. Patient states that he thought about killing himself and "wouldn't even care" if he killed someone else. Of note, patient stopped taking his medication prescribed for his manic depressions. He denies fevers, chills, headache, dizziness, chest pain, shortness of breath, dyspnea on exertion, cough, abdominal pain, nausea, vomiting, diarrhea, back pain, neck pain, or any other complaint. Time/Duration: 4-6 hours Symptom Course: Unchanged Activities at Onset: Light Context: Home Past Medical History - Provider Review Nursing Documentation Reviewed: Yes - Infectious Disease Hx of Infectious Diseases: None - Cardiac Hx Cardiac Disorders: No Hx Hypertension: No - Pulmonary Hx Tuberculosis: No - Neurological HX Cerebrovascular Accident: No Hx Seizures: No - Hematological/Oncological Hx Cancer: No - Musculoskeletal/Rheumatological Other/Comment: Scoliosis - Genitourinary/Gynecological Hx Sexually Transmitted Diseases: No - Psychiatric Hx Anxiety: Yes Hx Depression: Yes Hx Substance Use: Yes (marijuana) - Anesthesia Hx Anesthesia: No Family/Social History - Physician Review Nursing Documentation Reviewed: Yes Family/Social History: No Known Family HX Smoking Status: Light Smoker < 10 Cigarettes Daily Hx Alcohol Use: Yes Frequency of alcohol use: Socially Hx Substance Use: Yes (marijuana) Substance used: marijuana Allergies/Home Meds Allergies/Adverse Reactions: Allergies No Known Allergies Allergy (Verified 05/08/18 12:17) Home Medications: Home Meds Medication Instructions Recorded Confirmed RX: No Known Home Med 05/08/18 05/08/18 Review of Systems - Physician Review All systems were reviewed & negative as marked: Yes - Review of Systems Constitutional: absent: Fevers Cardiovascular: absent: Chest Pain Physical Exam - Physical Exam Narrative Physical Exam (Text): 05/08/18 08:08 Constitutional: No acute distress. Head: Normocephalic. Atraumatic. Eyes: PERRL. ENT: Moist mucous membranes. Neck: Supple. Cardiovascular: Regular rate. Chest: No tenderness. Respiratory: Clear to auscultation bilaterally. GI: Soft. Nontender. Nondistended. Back: No CVA tenderness. Musculoskeletal: No tenderness or swelling of extremities. Skin: No rash. Neurologic: Alert, no focal deficit. Psych: Cyclical thinking. pressured speech. no auditory/visual hallucinations. Vital Signs Reviewed: Yes Vital Signs Temp Pulse Resp BP Pulse Ox 05/08/18 07:35 97.7 F 77 18 127/77 99 Temperature: Afebrile Blood Pressure: Normal Pulse: Regular Respiratory Rate: Normal Appearance: Positive for: Well-Appearing, Non-Toxic, Comfortable Pain Distress: None Mental Status: Positive for: Alert and Oriented X 3 Medical Decision Making ED Course and Treatment: 05/08/18 08:08 Impression: 22 year old male who presents to the emergency department complaining of suicidal ideation. Plan: --EKG -- Labs -- Chest X-ray -- Urinalysis -- Reassess and disposition Prior Visits: Notes and results from previous visits were reviewed. Progress Notes: 05/08/18 08:34 EKG reviewed, shows: NSR at 60bpm with diffuse ST elevation, consistent with early repolarization. 05/08/18 09:39 Chest X-ray reviewed, shows: IMPRESSION: No active disease. - Lab Interpretations I have reviewed the lab results: Yes - Scribe Statement The provider has reviewed the documentation as recorded by the Jalil Huerta Provider Scribe Attestation: All medical record entries made by the Scribe were at my direction and personally dictated by me. I have reviewed the chart and agree that the record accurately reflects my personal performance of the history, physical exam, medical decision making, and the department course for this patient. I have also personally directed, reviewed, and agree with the discharge instructions and disposition. Disposition/Present on Arrival - Present on Arrival Any Indicators Present on Arrival: No History of DVT/PE: No History of Uncontrolled Diabetes: No Urinary Catheter: No History of Decub. Ulcer: No History Surgical Site Infection Following: None - Disposition Have Diagnosis and Disposition been Completed?: Yes Diagnosis: Schizophrenia Disposition: HOSPITALIZED Disposition Time: 10:00 Patient Plan: Admission Condition: GUARDED
[2018-05-08 08:32] LABS: BASO # 0.01 K/mm3 (0.0-2.0); BASO % 0.3 % (0.0-3.0); EOS # 0.1 (0.0-0.7); EOS % 2.5 % (1.5-5.0); GRAN # 1.67 (1.4-6.5); GRAN % 42.1 % (50.0-68.0); HEMOGLOBIN 14.8 g/dL (14.0-18.0); LYMPH # 1.8 (1.2-3.4); LYMPH % 45.8 % (22.0-35.0); MEAN CELL VOLUME 87.7 fl (80.0-105.0); MEAN CORPUSCULAR HEMOGLOBIN 29.8 pg (25.0-35.0); MEAN CORPUSCULAR HGB CONC 33.9 g/dl (31.0-37.0); MEAN PLATELET VOLUME 9.3 fl (7.0-11.0); MONO # 0.4 (0.1-0.6); MONO % 9.3 % (1.0-6.0); RBC 4.97 10^6/uL (3.5-6.1); RED CELL DISTRIBUTION WIDTH 13.3 % (11.5-14.5)
[2018-05-08 08:40] LABS: ALB/GLOB RATIO 1.3 (1.1-1.8); ALBUMIN 4.6 g/dL (3.0-4.8); ALT/SGPT 25 U/L (7-56); AST/SGOT 41 U/L (17-59); BLOOD UREA NITROGEN 8 mg/dL (7-21); CALCIUM 9.4 mg/dL (8.4-10.5); GFR NON-AFRICAN AMERICAN > 60
[2018-05-08 08:41] LABS: ACETAMINOPHEN < 10.0 ug/ml (10.0-20.0); SALICYLATE < 1 mg/dL (2.0-20.0)
[2018-05-08 09:17] LABS: PH,URINE 7.5 (4.7-8.0); URINE BILIRUBIN SMALL (NEGATIVE); URINE BLOOD NEGATIVE (NEGATIVE); URINE GLUCOSE (UA) NEGATIVE (NEGATIVE); URINE LEUKOCYTE ESTERASE NEGATIVE Leu/uL (NEGATIVE); URINE PROTEIN NEGATIVE mg/dL (<30 mg/dL)
[2018-05-08 09:18] LABS: URINE APPEARANCE CLEAR (CLEAR); URINE COLOR YELLOW (YELLOW)
--- NOTE | 2018-05-08 09:36 | RAD ---
Date of service: 05/08/2018 PROCEDURE: CHEST RADIOGRAPH, 1 VIEW HISTORY: suicidal ideation COMPARISON: 08/06/2017 FINDINGS: LUNGS: Clear. PLEURA: No pneumothorax or pleural fluid seen. CARDIOVASCULAR: No aortic atherosclerotic calcification present. Normal. OSSEOUS STRUCTURES: No significant abnormalities. VISUALIZED UPPER ABDOMEN: Normal. OTHER FINDINGS: None. IMPRESSION: No active disease.
[2018-05-08 09:44] LABS: BARBITURATES, UR NEGATIVE (NEGATIVE); BENZODIAZEPINES, UR NEGATIVE (NEGATIVE); OPIATES, UR NEGATIVE (NEGATIVE); PHENCYCLIDINE, UR NEGATIVE (NEGATIVE)
--- NOTE | 2018-05-08 11:08 | CARD ---
APPROVED REPORT Date of service: 05/08/2018 EKG Measurement Heart [id number] <Conclusion> Sinus bradycardia with sinus arrhythmia ST elevation, probably due to early repolarization Borderline ECG
[2018-05-08] MEDS ORDERED: Alum-Mag Hydrox-Simethicone Susp (30 mL) PO PRN (14:04)
[2018-05-08] MEDS ORDERED: Magnesium Hydroxide Susp 30 ml UD PO PRN (14:05)
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
--- NOTE | 2018-05-09 07:05 | PCM.BM ---
<Nam Pompa O - Last Filed: 05/09/18 07:03> Treatment Plan Problems - Problems identified on initial assessmt Altered thought process Date Initiated: 05/08/18 Time Initiated: 21:00 Assessment reference: NA Status: Active Medication nonadherence Date Initiated: 05/08/18 Time Initiated: 21:00 Assessment reference: NA Status: Active Ineffective coping Date Initiated: 05/08/18 Time Initiated: 22:00 Assessment reference: NA Status: Active Violence Date Initiated: 05/08/18 Time Initiated: 21:00 Assessment reference: NA Status: Active Treatment assets and liabiliti Patient Assests: adapts well, cooperative, educated, motivated, self-reliant, ADL independent, physically healthy, good support system, negotiates basic needs, cognitively intact Patient Liabilities: poor support system - Milieu Protocol Maintain good personal hygiene: daily Encourage regular showers, daily Remind patient to perform daily oral care, daily Assist patient to perform ADL's Maintain personal safety: daily Educate patient to report safety concerns to staff, daily Monitor environment for contraband/sharps Medication safety: Monitor for expected outcome, potential side effects: daily, Assess barriers to learning: daily, Assess readiness for medication education: daily Milieu Narrative: Milieu/structure/supportive therapy Medical consult will be considered consultation for discharge plan and social issues Med management Seroquel was started 100 mg at the nighttime When necessary medications started Ambien as needed for insomnia Family involvement, patient did not give consent for collateral information Follow up on labs Will monitor closely Pt was educated about risk/benefits and alternatives of medications, coping strategies (safety plan, suicide prevention), relapse prevention, importance of follow up with psychiatrist and therapist, stay away from drugs/alcohol/smoking Family Contact Family involvement: Patient does not wish Family/SO involvement Family contact: Patient declines to allow family contact at present - Goals for Treatment Patient goals for treatment: To feel better Discharge/Continuing Care - Education Needs Education Needs: Patient Medication, Patient Coping Skills, Patient Anger Management skills - Discharge Discharge Criteria: Ability to care for self - Treatment Team Participation Patient/Family/SO Statement: Milieu/structure/supportive therapy Medical consult will be considered consultation for discharge plan and social issues Med management Seroquel was started 100 mg at the nighttime When necessary medications started Ambien as needed for insomnia Family involvement, patient did not give consent for collateral information Follow up on labs Will monitor closely Pt was educated about risk/benefits and alternatives of medications, coping strategies (safety plan, suicide prevention), relapse prevention, importance of follow up with psychiatrist and therapist, stay away from drugs/alcohol/smoking <Deepti Candaa - Last Filed: 05/09/18 15:15> - Diagnosis (1) Psychosis Status: Acute Interventions: 05/09/18 15:16 Psychoeducation/psychotherapy Psychopharmacology/adjustment of medications as needed/ monitoring possible side effects Evaluate pt on daily basis Compliance with medications and follow up appointments Long acting medication if pt is noncompliant with pill form Suicide and homicide risk assessment and prevention, coping strategies, safety plan Relapse prevention Reduction of symptoms Improve functional status Possible assertive community treatment Cognitive behavioral therapy Family involvement Possible social skill training as outpatient (2) Mood disorder Status: Acute Interventions: 05/09/18 15:16 Psychoeducation Psychopharmacology/adjustment of medications as needed/ monitoring possible side effects Monitor blood level of mood stabilizers Evaluate pt on daily basis Compliance with medications and follow up appointments Suicide and homicide risk assessment and prevention, coping strategies, safety plan Relapse prevention Reduction of symptoms Improve functional status Family involvement As outpatient: cognitive behavioral therapy <Maria C Burgos - Last Filed: 05/10/18 16:10> Family Contact Family involvement: Patient does not wish Family/SO involvement
[2018-05-09 07:10] LABS: GLUCOSE,FASTING 84 mg/dL (65-110); HDL CHOLESTEROL 47 mg/dL (29-60)
[2018-05-09 07:22] LABS: LDL CHOLESTEROL 87 mg/dL (0-129)
[2018-05-09 07:39] LABS: FREE T4 1.01 ng/dL (0.78-2.19)
--- NOTE | 2018-05-09 15:23 | PCM.PYCHPN ---
Psychiatric Progress Note - Psychiatric Progress Note Patient seen today, length of contact: 30 minutes Patient Chief Complaint: "I want to address my mind racing, difficulty to concentrate, sometimes I'm losing track what person is saying, I also feel very impulsive and they could break stuff" Problems Identified/Issues Discussed: Suicide/ homicide prevention, past psychiatric h/o, current psychiatric symptoms, medical problems, risk/benefits and alternatives of medications, medications compliance, coping strategies, substance abuse h/o, relapse prevention, importance of follow up with psychiatrist and therapist, discharge plan. Medical Problems: patient is relatively healthy Diagnostic Results: 05/08/18 07:52 05/08/18 07:52 Lab Results 05/09/18 06:45: Free T4 1.01, TSH 3rd Generation 0.21 L 05/09/18 06:45: Fasting Glucose 84, Triglycerides 49, Cholesterol 136, LDL Cholesterol Direct 87, HDL Cholesterol 47 05/08/18 09:00: Urine Opiates Screen Negative, Urine Methadone Screen Negative, Ur Barbiturates Screen Negative, Ur Phencyclidine Scrn Negative, Ur Amphetamines Screen Negative, U Benzodiazepines Scrn Negative, U Oth Cocaine Metabols Negative, U Cannabinoids Screen Positive H 05/08/18 09:00: Urine Color Yellow, Urine Appearance Clear, Urine pH 7.5, Ur Specific [place] 1.020, Urine Protein Negative, Urine Glucose (UA) Negative, Urine Ketones Negative, Urine Blood Negative, Urine Nitrate Negative, Urine Bilirubin Small H, Urine Urobilinogen 1.0 H, Ur Leukocyte Esterase Negative 05/08/18 07:52: Alcohol, Quantitative < 10 05/08/18 07:52: Salicylates < 1 L, Acetaminophen < 10.0 L 05/08/18 07:52: Sodium 141, Potassium 3.8, Chloride 102, Carbon Dioxide 32, Anion Gap 11, BUN 8, Creatinine 1.0, Est GFR ( Amer) > 60, Est GFR (Non- Af Amer) > 60, Random Glucose 84, Calcium 9.4, Total Bilirubin 0.4, AST 41, ALT 25, Alkaline Phosphatase 70, Total Protein 8.1, Albumin 4.6, Globulin 3.6, Albumin/Globulin Ratio 1.3 05/08/18 07:52: WBC 4.0 L, RBC 4.97, Hgb 14.8, Hct 43.6, MCV 87.7, MCH 29.8, MCHC 33.9, RDW 13.3, Plt Count 283, MPV 9.3, Gran % 42.1 L, Lymph % (Auto) 45.8 H, [place] % (Auto) 9.3 H, Eos % (Auto) 2.5, Baso % (Auto) 0.3, Gran # 1.67, Lymph # (Auto) 1.8, [place] # (Auto) 0.4, Eos # (Auto) 0.1, Baso # (Auto) 0.01 Vital Signs Temp Pulse Resp BP Pulse Ox 05/09/18 07:19 98.6 F 50 L 20 98/53 L 05/08/18 15:37 52 L 109/56 L 05/08/18 14:00 20 05/08/18 11:00 98.4 F 68 20 104/64 98 05/08/18 10:52 97.9 F 75 18 124/72 99 05/08/18 10:22 97.9 F 79 16 125/80 98 05/08/18 07:35 97.7 F 77 18 127/77 99 DSM 5 Symptoms Update: shortly patient is 22 year old -[place] male, whose past psychiatric history included mood spectrum disorder as well as psychosis, patient has 1 psychiatric admission in July 2017, patient has history of impulsive behavior, patient did not follow up with outpatient psychiatrist after discharge, stopped taking his medications, patient came to the hospital looking for help for his depressive symptoms, inability to function, possible suicidal and homicidal ideation, disorganized thoughts and behavior. patient requires further hospitalization, observation, medication resumption and titration. Patient was seen at the treatment team meeting room with a medical student. Patient presented with improved personal hygiene, thought process seems to be better organized but patient still has circumstantiality and tangentiality. Patient was to address his impulsive behavior, mind racing, poor and uncontrolled impulses. This commercial underwriter offered patient to be on most stabilizer as well as Risperdal. Risk, benefits, alternatives discussed with the patient patient was appreciated from willing to try dose medication. As for stuff patient started to attend groups, no agitation or aggression, sleep and appetite good. patient denied any thoughts of harming himself or others, contracted for safety. so far patient tolerates medications well, no side effects observed or reported, aims 0, no EPS. discussed with Dr. Bradley, patient never followed up with outpatient psychiatrist. Impression: Psychosis NOS Rule out bipolar disorder manic episode psychosis Medication Change: Yes (Seroquel discontinued, Depakote and Risperdal started) Medical Record Reviewed: Yes Consults ordered or reviewed: patient was seen by medical team and the emergency room but TSH seems to be low for call for medical consultation Mental Status Examination - Cognitive Function Orientation: Person, Place, Situation Memory: Intact Attention: Poor Concentration: Poor Association: WNL Fund of Knowledge: WNL (.) - Mood Mood: Depressed - Affect Affect: Other (at times inappropriate) - Formal Thought Process Formal Thought Process: Delusions, Paranoia, Loosening of associations, Circumstantial - Suicidal Ideation Suicidal Ideation: No - Homicidal Ideation Homicidal Ideation: No Goal/Treatment Plan - Goal/Treatment Plan Need for Continued Stay: Remain at risks for inpatient hospitalization, Severe depression anxiety, Discharge may exacerbated symptoms, Severe functional impairment Progress Toward Problem(s) and Goals/Treatment Plan: Milieu/structure/supportive therapy Medical consult will be called for hyperthyroidism SW consultation for discharge plan and social issues Med management Seroquel d/c Risperdal 0.5 mg twice a day for psychosis and impulsivity Depakote 250 mg twice a day for mood stabilization When necessary medications started Ambien as needed for insomnia Family involvement, patient did not give consent for collateral information Follow up on labs Will monitor closely Pt was educated about risk/benefits and alternatives of medications, coping strategies (safety plan, suicide prevention), relapse prevention, importance of follow up with psychiatrist and therapist, stay away from drugs/alcohol/smoking Estimated Date of D/C: 05/15/18
[2018-05-09] MEDS: Divalproex 250 mg DR (BID formulation) PO SCH (21:20)
[2018-05-10] MEDS: Divalproex 250 mg DR (BID formulation) PO SCH ×2 (11:16→21:26)
--- NOTE | 2018-05-10 15:36 | PCM.PYCHPN ---
Psychiatric Progress Note - Psychiatric Progress Note Patient seen today, length of contact: 30 minutes Patient Chief Complaint: "I was angry at the morning" Problems Identified/Issues Discussed: Suicide/ homicide prevention, past psychiatric h/o, current psychiatric sympto ms, medical problems, risk/benefits and alternatives of medications, medications compliance, coping strategies, substance abuse h/o, relapse prevention, importance of follow up with psychiatrist and therapist, discharge plan. Medical Problems: patient is relatively healthy Diagnostic Results: 05/08/18 07:52 05/08/18 07:52 Lab Results 05/09/18 06:45: Free T4 1.01, TSH 3rd Generation 0.21 L 05/09/18 06:45: Fasting Glucose 84, Triglycerides 49, Cholesterol 136, LDL Cholesterol Direct 87, HDL Cholesterol 47 05/08/18 09:00: Urine Opiates Screen Negative, Urine Methadone Screen Negative, Ur Barbiturates Screen Negative, Ur Phencyclidine Scrn Negative, Ur Amphetamines Screen Negative, U Benzodiazepines Scrn Negative, U Oth Cocaine Metabols Negative, U Cannabinoids Screen Positive H 05/08/18 09:00: Urine Color Yellow, Urine Appearance Clear, Urine pH 7.5, Ur Sp ecific [place] 1.020, Urine Protein Negative, Urine Glucose (UA) Negative, Urine Ketones Negative, Urine Blood Negative, Urine Nitrate Negative, Urine Bilirubin Small H, Urine Urobilinogen 1.0 H, Ur Leukocyte Esterase Negative 05/08/18 07:52: Alcohol, Quantitative < 10 05/08/18 07:52: Salicylates < 1 L, Acetaminophen < 10.0 L 05/08/18 07:52: Sodium 141, Potassium 3.8, Chloride 102, Carbon Dioxide 32, Anion Gap 11, BUN 8, Creatinine 1.0, Est GFR ( Amer) > 60, Est GFR (Non- Af Amer) > 60, Random Glucose 84, Calcium 9.4, Total Bilirubin 0.4, AST 41, ALT 25, Alkaline Phosphatase 70, Total Protein 8.1, Albumin 4.6, Globulin 3.6, Albumin/Globulin Ratio 1.3 05/08/18 07:52: WBC 4.0 L, RBC 4.97, Hgb 14.8, Hct 43.6, MCV 87.7, MCH 29.8, MCHC 33.9, RDW 13.3, Plt Count 283, MPV 9.3, Gran % 42.1 L, Lymph % (Auto) 45.8 H, [place] % (Auto) 9.3 H, Eos % (Auto) 2.5, Baso % (Auto) 0.3, Gran # 1.67, Lymph # (Auto) 1.8, [place] # (Auto) 0.4, Eos # (Auto) 0.1, Baso # (Auto) 0.01 Vital Signs Temp Pulse Resp BP Pulse Ox 05/09/18 07:19 98.6 F 50 L 20 98/53 L 05/08/18 15:37 52 L 109/56 L 05/08/18 14:00 20 05/08/18 11:00 98.4 F 68 20 104/64 98 05/08/18 10:52 97.9 F 75 18 124/72 99 05/08/18 10:22 97.9 F 79 16 125/80 98 05/08/18 07:35 97.7 F 77 18 127/77 99 DSM 5 Symptoms Update: shortly patient is 22 year old -[place] male, whose past psychiatric history included mood spectrum disorder as well as psychosis, patient has 1 psychiatric admission in July 2017, patient has history of impulsive behavior, patient did not follow up with outpatient psychiatrist after discharge, stopped taking his medications, patient came to the hospital looking for help for his depressive symptoms, inability to function, possible suicidal and homicidal ideation, disorganized thoughts and behavior. patient requires further hospitalization, observation, medication resumption and titration. Patient was seen at the treatment team meeting room with a medical students. Patient presented with improved personal hygiene, thought process seems to be better organized but patient still has circumstantiality and tangentiality. pt reported to feel angry at am, but "I was able to control myself", pt c/o mind racing and distractability. pt was educated about relaxation techniques and breathing exercise, responded well, was given assignment to practice over the weekend. Patient's treatment goals are: to address his impulsive behavior, mind racing, poor and uncontrolled impulses. As for stuff patient started to attend groups, no agitation or aggression, sleep and appetite good. patient denied any thoughts of harming himself or others, contracted for safety. so far patient tolerates medications well, no side effects observed or reported, aims 0, no EPS. discussed with Dr. Bradley, patient never followed up with outpatient psychiatrist. Impression: Psychosis NOS Rule out bipolar disorder manic episode psychosis Medication Change: Yes ( risperdal increased) Medical Record Reviewed: Yes Mental Status Examination - Cognitive Function Orientation: Person, Place, Situation Memory: Intact Attention: Poor Concentration: Poor Association: WNL Fund of Knowledge: WNL (.) - Mood Mood: Depressed - Affect Affect: Other (at times inappropriate) - Formal Thought Process Formal Thought Process: Delusions (deneid), Paranoia (denied), Loosening of associations, Circumstantial - Suicidal Ideation Suicidal Ideation: No - Homicidal Ideation Homicidal Ideation: No Goal/Treatment Plan - Goal/Treatment Plan Need for Continued Stay: Remain at risks for inpatient hospitalization, Severe depression anxiety, Discharge may exacerbated symptoms, Severe functional im pairment Progress Toward Problem(s) and Goals/Treatment Plan: Milieu/structure/supportive therapy Medical consult will be called for hyperthyroidism SW consultation for discharge plan and social issues Med management Seroquel d/c Risperdal 1 mg twice a day for psychosis and impulsivity Depakote 250 mg twice a day for mood stabilization When necessary medications started Ambien as needed for insomnia Family involvement, patient did not give consent for collateral information Follow up on labs Will monitor closely Pt was educated about risk/benefits and alternatives of medications, coping strategies (safety plan, suicide prevention), relapse prevention, importance of follow up with psychiatrist and therapist, stay away from drugs/alcohol/smoking Estimated Date of D/C: 05/15/18
[2018-05-11 08:23] LABS: IRON 39 ug/dL (45-180)
[2018-05-11 08:32] LABS: % IRON SATURATION 13 % (20-55); TOTAL IRON BINDING CAPACITY 297 ug/dL (261-462)
[2018-05-11 08:33] LABS: BLOOD UREA NITROGEN 15 mg/dL (7-21); GFR NON-AFRICAN AMERICAN > 60; HDL CHOLESTEROL 51 mg/dL (29-60); LDL CHOLESTEROL 85 mg/dL (0-129)
[2018-05-11 08:47] LABS: HEMOGLOBIN 13.7 g/dL (14.0-18.0); MEAN CELL VOLUME 86.5 fl (80.0-105.0); MEAN CORPUSCULAR HEMOGLOBIN 28.1 pg (25.0-35.0); MEAN CORPUSCULAR HGB CONC 32.5 g/dl (31.0-37.0); MEAN PLATELET VOLUME 9.4 fl (7.0-11.0); RBC 4.88 10^6/uL (3.5-6.1); RED CELL DISTRIBUTION WIDTH 13.5 % (11.5-14.5); WHITE BLOOD COUNT 5.2 10^3/uL (4.5-11.0)
[2018-05-11] MEDS: Divalproex 250 mg DR (BID formulation) PO SCH ×2 (09:15→22:01)
--- NOTE | 2018-05-11 09:51 | PCM.PYCHPN ---
Psychiatric Progress Note - Psychiatric Progress Note Patient seen today, length of contact: 30 minutes Problems Identified/Issues Discussed: I reviewed assessment and recent notes. Patient was interviewed at bedside. He is calm and fairly cooperative. Indicates that he feels "all right". Denies any issues with his medication or any new discomfort or pain. Notes his back is sore "because this bed is uncomfortable". Patient's affect is neutral and he appears related. Patient denies any perceptual disturbance including hallucinations or paranoid thoughts. Staff notes indicate that patient has been visible and appropriately interacting with other patients on the unit. There were no behavio ral issues overnight. Diagnostic Results: Psychosis NOS Rule out bipolar disorder manic episode psychosis Medication Change: Yes ( risperdal increased) Medical Record Reviewed: Yes Mental Status Examination - Cognitive Function Orientation: Person, Place, Situation Memory: Intact Attention: WNL Concentration: Poor Association: WNL Fund of Knowledge: WNL (.) - Mood Mood: Depressed - Affect Affect: Other (at times inappropriate) - Formal Thought Process Formal Thought Process: Delusions (deneid), Paranoia (denied), Loosening of associations, Circumstantial - Suicidal Ideation Suicidal Ideation: No - Homicidal Ideation Homicidal Ideation: No Goal/Treatment Plan - Goal/Treatment Plan Need for Continued Stay: Remain at risks for inpatient hospitalization, Severe depression anxiety, Discharge may exacerbated symptoms, Severe functional impairment Progress Toward Problem(s) and Goals/Treatment Plan: * c/w current tx and plan * No new weekend lab results thus far * Vitals reviewed and noted below: Selected Entries 05/10/18 05/10/18 07:23 16:00 Temperature 98.4 F Pulse Rate 56 L 82 Respiratory 20 Rate Blood Pressure 101/44 L 120/62 Estimated Date of D/C: 05/15/18
[2018-05-11 12:32] LABS: FOLATE 10.8 ng/mL
--- NOTE | 2018-05-12 00:21 | PN ---
DATE: 05/11/2018 SUBJECTIVE: The patient is a 22-year-old male. The patient was seen and examined at the bedside on 05/11/2018. Looking comfortable. No fevers. No chills. No nausea or vomiting. No hematuria or hematochezia, but feeling gaseous stomach. PHYSICAL EXAMINATION: VITAL SIGNS: Temperature 98.4, pulse 78, blood pressure 135/72, respiratory rate 20. HEENT: Head: Normocephalic, atraumatic. Eyes: PERRLA. Extraocular movements intact. Conjunctivae clear. Nose patent. Mucous membranes moist. NECK: Supple. No carotid bruit. No JVD or thyromegaly. CHEST: Bilaterally symmetrical. HEART: S1, S2 positive. LUNGS: Clear to auscultation. ABDOMEN: Soft. Bowel sounds present. No organomegaly. EXTREMITIES: No edema, no cyanosis. NEUROLOGIC: The patient is awake and alert, moving all 4 extremities. No focal deficit. MEDICATIONS: Ambien, Ativan, Depakote, acetaminophen, Maalox, Milk of Magnesia, Risperdal, and Tylenol. LABORATORY DATA: White blood cells 5.2, hemoglobin 13.7, hematocrit 42.2, and platelets 228. Sodium 137, potassium 4.5, BUN 50, creatinine 1, glucose 90. ASSESSMENT AND PLAN: Mr. Marquis Franco is a 22-year-old male with gastroesophageal reflux disease, dyspepsia, leukopenia, anemia, iron deficiency, hypothyroidism, and drug screen positive for cannabinoid. RPR negative. He is admitted in the psych floor, seen by psy.. The patient had psychosis , rule out bipolar disorder, manic episode, psychosis. Getting Risperdal. Has depression, history of delusion and paranoia, loosening of association. Appreciated psychiatrist's input. Repeat labs. We will follow up. Karissa Urbano MD [facility]
[2018-05-12 06:51] VITALS: O2SAT 97
[2018-05-12] MEDS: Divalproex 250 mg DR (BID formulation) PO SCH ×2 (09:10→21:32)
--- NOTE | 2018-05-12 09:53 | PCM.PYCHPN ---
Psychiatric Progress Note - Psychiatric Progress Note Patient seen today, length of contact: 30 minutes Problems Identified/Issues Discussed: I reviewed recent notes and interviewed patient at bedside. He is calm and fairly cooperative. Indicates that he feels "good, same old". Denies any issues with his medication or any new discomfort or pain. Affect is pleasant, related and friendly, congruent to reported mood. Patient denies any perceptual disturbance including hallucinations or paranoid thoughts. Indicates that he slept well. Staff notes indicate that patient has been visible and appropriately interacting with other patients on the unit. There were no behavioral issues over the weekend. Diagnostic Results: Psychosis NOS Rule out bipolar disorder manic episode psychosis Medication Change: Yes ( risperdal increased) Medical Record Reviewed: Yes Mental Status Examination - Cognitive Function Orientation: Person, Place, Situation Memory: Intact Attention: WNL Concentration: WNL Association: WNL Fund of Knowledge: WNL (.) - Mood Mood: Depressed ("good, same old") - Affect Affect: Broad (pleasant), Other ( ) - Speech Speech: Appropriate - Formal Thought Process Formal Thought Process: Delusions (denied, none elicited), Paranoia (denied), Loosening of associations (more organized), Circumstantial (improved focus) - Suicidal Ideation Suicidal Ideation: No - Homicidal Ideation Homicidal Ideation: No Goal/Treatment Plan - Goal/Treatment Plan Need for Continued Stay: Remain at risks for inpatient hospitalization, Severe depression anxiety, Discharge may exacerbated symptoms, Severe functional impairment Progress Toward Problem(s) and Goals/Treatment Plan: * c/w current tx and plan * Appreciate f/u by Dr. Urbano on 05/11/18~repeat labs (noted below), to f/u * Vitals reviewed and noted below: 05/10/18 05/10/18 05/11/18 07:23 16:00 16:01 Temperature 98.4 F Pulse Rate 56 L 82 78 Respiratory 20 Rate Blood Pressure 101/44 L 120/62 135/72 * New weekend labs noted below: 05/11/18 05/11/18 05/11/18 07:30 07:30 07:30 WBC 5.2 D Hgb 13.7 L Hct 42.2 Plt Count 228 Sodium 137 Potassium 4.5 Chloride 102 Carbon Dioxide 31 Anion Gap 9 L BUN 15 Creatinine 1.0 Est GFR ( Amer) > 60 Random Glucose 90 Calcium 9.0 Iron 39 L TIBC 297 % Saturation 13 L Triglycerides 51 Cholesterol 134 LDL Cholesterol Direct 85 HDL Cholesterol 51 TSH 3rd Generation 05/11/18 07:30 WBC Hgb Hct Plt Count Sodium Potassium Chloride Carbon Dioxide Anion Gap BUN Creatinine Est GFR ( Amer) Random Glucose Calcium Iron TIBC % Saturation Triglycerides Cholesterol LDL Cholesterol Direct HDL Cholesterol TSH 3rd Generation 0.97 Laboratory Results - last 24 hr 05/11/18 05/11/18 07:30 07:30 Hemoglobin A1c 5.5 Vitamin B12 579 Folate 10.8 Estimated Date of D/C: 05/15/18
--- NOTE | 2018-05-12 17:10 | RAD ---
Date of service: 05/12/2018 HISTORY: Chest pain COMPARISON: Comparison chest 04/30/2018. TECHNIQUE: Chest PA and lateral FINDINGS: LUNGS: No active pulmonary disease. PLEURA: No significant pleural effusion identified. No pneumothorax apparent. CARDIOVASCULAR: No aortic atherosclerotic calcification present. Normal cardiac size. No pulmonary vascular congestion. OSSEOUS STRUCTURES: No significant abnormalities. VISUALIZED UPPER ABDOMEN: Normal. OTHER FINDINGS: None. IMPRESSION: No active disease.
--- NOTE | 2018-05-13 01:15 | PN ---
DATE: 05/12/2018 SUBJECTIVE: Patient is a 22-year-old male. Patient was seen and examined at the bedside on 05/12/2018. Patient is looking comfortable. Complaining about chest pain, especially with deep breathing and coughing. Requesting chest x-rays, but no fever, no chills. No hematuria, hematochezia. No swelling of the legs. No headache. No dizziness. PHYSICAL EXAMINATION VITAL SIGNS: Temperature 98.4, pulse 56, respiratory rate 20, blood pressure 101/44. HEENT: Head: Normocephalic, atraumatic. Eyes: PERRLA. Extraocular movements are intact. Conjunctivae clear. Nose patent. Mucous membranes moist. NECK: Supple. No carotid bruit. No JVD or thyromegaly. CHEST: Bilaterally symmetrical. HEART: S1 and S2 positive. LUNGS: Clear to auscultation. ABDOMEN: Soft. Bowel sounds present. No organomegaly. EXTREMITIES: No edema. No cyanosis. NEUROLOGICAL: Patient is awake, alert. Moving all 4 extremities. No focal deficit. MEDICATIONS: Ambien, Ativan, Depakote, DuoNeb, Maalox, Milk of Magnesia, Risperdal, Tylenol. LABORATORY DATA: We do not have labs today, but reviewed old labs. ASSESSMENT AND PLAN: Mr. Marquis Franco, 22-year-old male, with history of leukopenia, improved; anemia; hypothyroidism, repeat TSH is within normal limits; iron deficiency; was complaining about chest pain, especially with deep breathing, chest x-ray ordered, no active disease; gastroesophageal reflux disease; dyspepsia. Patient is calm and quiet, fairly cooperative. Patient's psychosis, not otherwise specified. Rule out bipolar disorder, manic episode, psychosis. Psych is on the case. Reviewed Dr. Amanda Holbrook's notes, appreciated. Gastrointestinal and deep venous thrombosis prophylaxis. Repeat labs. We will follow up. Karissa Urbano MD [facility]
[2018-05-13 07:32] VITALS: RESP 20; TEMP 98
[2018-05-13] MEDS: Divalproex 250 mg DR (BID formulation) PO SCH ×2 (09:26→21:30)
--- NOTE | 2018-05-13 09:52 | CON ---
DATE: 05/10/2018 SUBJECTIVE: The patient is a 22-year-old male. The patient was seen and examined at the bedside on 05/10/2018, looking comfortable. CHIEF COMPLAINT: Depression and suicidal ideation. HISTORY OF PRESENT ILLNESS: Mr. Marquis Franco is a 22 years old male with past medical history of anxiety and manic depression, suicidal ideas, came to the emergency department complaining of suicidal ideation. The patient states he was up all night crying and contemplating his thoughts of school, on money, work, family, etc. The patient states that he thought about killing himself and would not even care if he killed someone else. Of note, the patient stopped taking the medication prescribed by his primary care physician. He denies fevers or chills. No dizziness, no shortness of breath. No hematuria, no hematochezia. No swelling of legs. No chest pain, no palpitation. PAST MEDICAL HISTORY: Scoliosis, anxiety, depression. He uses marijuana. FAMILY HISTORY: Father and mother, noncontributory. HABITS: Light smoker, less than 10. Alcohol, yes. socially. Substance use is marijuana. ALLERGIES: THE PATIENT IS NOT ALLERGIC WITH ANY MEDICATIONS. HOME MEDICATIONS: Reviewed. REVIEW OF SYSTEMS: The patient was seen and examined at bedside in the activity room, looking comfortable. I gave him my business card. Sometimes he is feeling gassy, otherwise no nausea, vomiting or diarrhea. No hematuria or hematochezia. No swelling of the leg. No chest pain. No palpitation. No headache or dizziness. PHYSICAL EXAMINATION VITAL SIGNS: Temperature 98.4, pulse 62, blood pressure 120/67, respiratory rate 20. HEENT: Head: Normocephalic, atraumatic. Eyes: PERRLA. Extraocular muscles intact. Conjunctivae clear. Nose patent. Mucous membrane moist. NECK: Supple. No carotid bruit. No JVD or thyromegaly. CHEST: Bilaterally symmetrical. HEART: S1 and S2 positive. LUNGS: Clear to auscultation. ABDOMEN: Soft. Bowel sounds present. No organomegaly. EXTREMITIES: No edema. No cyanosis. NEUROLOGIC: Patient is awake, alert. Moving all four extremities. No focal deficits. LABORATORY DATA: White blood cell 4.0, hemoglobin 14.8, hematocrit 46.6, platelets 283. Sodium 141, potassium 3.8, BUN 8, creatinine 1.0, glucose 84, and calcium noted ASSESSMENT AND PLAN: Mr. Marquis Franco is a 22-year-old male with leukopenia . Gastrointestinal and deep venous thrombosis prophylaxes. Repeat labs. We will follow up. Psychiatrist is on the case, continue psych medication. We will follow up. Karissa Urbano MD [facility]
--- NOTE | 2018-05-13 16:29 | PCM.PYCHPN ---
Psychiatric Progress Note - Psychiatric Progress Note Patient seen today, length of contact: 30 minutes Patient Chief Complaint: "I am feeling better" Problems Identified/Issues Discussed: Suicide/ homicide prevention, past psychiatric h/o, current psychiatric symptoms, medical problems, risk/benefits and alternatives of medications, medications compliance, coping strategies, substance abuse h/o, relapse prevention, importance of follow up with psychiatrist and therapist, discharge plan. Medical Problems: patient is relatively healthy Diagnostic Results: 05/08/18 07:52 05/08/18 07:52 Lab Results 05/09/18 06:45: Free T4 1.01, TSH 3rd Generation 0.21 L 05/09/18 06:45: Fasting Glucose 84, Triglycerides 49, Cholesterol 136, LDL Cholesterol Direct 87, HDL Cholesterol 47 05/08/18 09:00: Urine Opiates Screen Negative, Urine Methadone Screen Negative, Ur Barbiturates Screen Negative, Ur Phencyclidine Scrn Negative, Ur Amphetamines Screen Negative, U Benzodiazepines Scrn Negative, U Oth Cocaine Metabols Negative, U Cannabinoids Screen Positive H 05/08/18 09:00: Urine Color Yellow, Urine Appearance Clear, Urine pH 7.5, Ur Specific [place] 1.020, Urine Protein Negative, Urine Glucose (UA) Negative, Urine Ketones Negative, Urine Blood Negative, Urine Nitrate Negative, Urine Bilirubin Small H, Urine Urobilinogen 1.0 H, Ur Leukocyte Esterase Negative 05/08/18 07:52: Alcohol, Quantitative < 10 05/08/18 07:52: Salicylates < 1 L, Acetaminophen < 10.0 L 05/08/18 07:52: Sodium 141, Potassium 3.8, Chloride 102, Carbon Dioxide 32, Anion Gap 11, BUN 8, Creatinine 1.0, Est GFR ( Amer) > 60, Est GFR (Non- Af Amer) > 60, Random Glucose 84, Calcium 9.4, Total Bilirubin 0.4, AST 41, ALT 25, Alkaline Phosphatase 70, Total Protein 8.1, Albumin 4.6, Globulin 3.6, Albumin/Globulin Ratio 1.3 05/08/18 07:52: WBC 4.0 L, RBC 4.97, Hgb 14.8, Hct 43.6, MCV 87.7, MCH 29.8, MCHC 33.9, RDW 13.3, Plt Count 283, MPV 9.3, Gran % 42.1 L, Lymph % (Auto) 45.8 H, [place] % (Auto) 9.3 H, Eos % (Auto) 2.5, Baso % (Auto) 0.3, Gran # 1.67, Lymph # (Auto) 1.8, [place] # (Auto) 0.4, Eos # (Auto) 0.1, Baso # (Auto) 0.01 Vital Signs Temp Pulse Resp BP Pulse Ox 05/09/18 07:19 98.6 F 50 L 20 98/53 L 05/08/18 15:37 52 L 109/56 L 05/08/18 14:00 20 05/08/18 11:00 98.4 F 68 20 104/64 98 05/08/18 10:52 97.9 F 75 18 124/72 99 05/08/18 10:22 97.9 F 79 16 125/80 98 05/08/18 07:35 97.7 F 77 18 127/77 99 DSM 5 Symptoms Update: shortly patient is 22 year old -[place] male, whose past psychiatric history included mood spectrum disorder as well as psychosis, patient has 1 psychiatric admission in July 2017, patient has history of impulsive behavior, patient did not follow up with outpatient psychiatrist after discharge, stopped taking his medications, patient came to the hospital looking for help for his depressive symptoms, inability to function, possible suicidal and homicidal ideation, disorganized thoughts and behavior. patient requires further hospitalization, observation, medication resumption and titration. Patient was seen at the treatment team meeting room with a medical students. Patient presented with improved personal hygiene, thought process seems to be better organized, reported that his irritability is much better, pt denied any thoughts of harming self or others. pt has future oriented plans to go back to school. pt said that he slept well, he practiced with relaxation and breathing exercises over the weekend. Patient's treatment goals are: to address his impulsive behavior, mind racing, poor and uncontrolled impulses, pt reported that he is approaching his treatment goals. As for stuff patient started to attend groups, no agitation or aggression, sleep and appetite good. patient denied any thoughts of harming himself or others, contracted for safety. so far patient tolerates medications well, no side effects observed or reported, aims 0, no EPS. Impression: Psychosis NOS Rule out bipolar disorder manic episode psychosis Medication Change: No Medical Record Reviewed: Yes Mental Status Examination - Cognitive Function Orientation: Person, Place, Situation Memory: Intact Attention: WNL Concentration: WNL Association: WNL Fund of Knowledge: WNL (improved) - Mood Mood: Depressed ("I feel better") - Affect Affect: Broad (pleasant) - Speech Speech: Appropriate - Formal Thought Process Formal Thought Process: Delusions (denied, none elicited), Paranoia (denied), Loosening of associations (more organized), Circumstantial (improved focus) - Suicidal Ideation Suicidal Ideation: No - Homicidal Ideation Homicidal Ideation: No Goal/Treatment Plan - Goal/Treatment Plan Need for Continued Stay: Remain at risks for inpatient hospitalization, Severe depression anxiety, Discharge may exacerbated symptoms, Severe functional impairment Progress Toward Problem(s) and Goals/Treatment Plan: Milieu/structure/supportive therapy Medical consult will be called for hyperthyroidism SW consultation for discharge plan and social issues Med management Seroquel d/c Risperdal 1 mg twice a day for psychosis and impulsivity Depakote 250 mg twice a day for mood stabilization When necessary medications started Ambien as needed for insomnia Family involvement, patient did not give consent for collateral information Follow up on labs Will monitor closely Pt was educated about risk/benefits and alternatives of medications, coping strategies (safety plan, suicide prevention), relapse prevention, importance of follow up with psychiatrist and therapist, stay away from drugs/alcohol/smoking Estimated Date of D/C: 05/15/18
[2018-05-14 06:48] VITALS: BP 124/72; PULSE 80
[2018-05-14] MEDS: Divalproex 250 mg DR (BID formulation) PO SCH (09:45)
--- NOTE | 2018-05-14 13:01 | PN ---
DATE: 05/13/2018 SUBJECTIVE: The patient was seen and examined at the bedside on 05/13/2018, looking comfortable. Sometimes feeling gassy. No fever, no chills, no hematuria, no hematochezia. No swelling of the legs. No chest pain, no palpitation, no coughing, no shortness of breath. PHYSICAL EXAMINATION: VITAL SIGNS: Temperature 98.0, pulse 80, blood pressure 124/72, respiratory rate 20. HEENT: Head normocephalic, atraumatic. Eyes: PERRLA. Extraocular muscles are intact. Conjunctivae clear. Nose patent. Mucous membranes moist. NECK: Supple, no carotid bruit. No JVD or thyromegaly. CHEST: Bilaterally symmetrical. HEART: S1 and S2 positive. LUNGS: Clear to auscultation. ABDOMEN: Soft. Bowel sounds present. No organomegaly. EXTREMITIES: No edema, no cyanosis. NEUROLOGICAL: The patient is awake, alert. Moving all 4 extremities. No focal deficits. MEDICATIONS: Ambien, Ativan, Depakote, Geodon, Maalox, milk of magnesia, Risperdal, Tylenol. LABORATORY DATA: We do not have recent labs today, but we will get old labs. ASSESSMENT AND PLAN: Mr. Marquis Franco is a 22-year-old male with leukopenia, improved anemia with repeat labs, iron deficiency, insomnia and getting Ambien, gastroesophageal reflux disease, dyspepsia. Has a history of mood spectrum disorder as well as psychosis. Had one psychiatric admission in 07/2017. History of impulsive behavior. The patient is to follow up with outpatient psychiatrist and afterwards stop taking medication as it will be compliant. Patient came into the hospital looking for help for his depressive symptoms, inability to function, possibly suicidal and homicidal ideation, disorganized thought and behavior. Plan is to continue present treatment. Psych is on the case. GI and DVT prophylaxis, repeat labs. We will follow up. Karissa Urbano MD
--- NOTE | 2018-05-14 15:51 | PCM.PYCHDC ---
Mental Status Examination - Mental Status Examination Orientation: Person, Place, Situation, Time Memory: Intact Mood: Neutral Affect: Broad (and mood congruent) Speech: Appropriate Attention: WNL Concentration: WNL Association: WNL Fund of Knowledge: WNL Formal Thought Process: No Impairment (but mild thought process disorganization) Description of patient's judgement and insight: Pt has improved insight into mental and medical illness, pt was compliant with medications and unit rules and regulations, pt was going to groups, was calm, cooperative, socially appropriate, no behavioral incidents, no agitation, no aggression. Psychotic Thoughts and Behaviors: Pt denied v/a/t hallucinations, denied paranoid ideations, pt does not appear to be psychotic, and thought process is goal directed. Suicidal Ideation: No Current Homicidal Ideation?: No Plan: pt adamantly denied thoughts of harming self or others denied intent or plan. Discharge Summary - Discharge Note Reason for Hospitalization: patient was admitted to the psychiatric inpatient unit for disorganized thoughts and behavior possible suicidal ideation Psychiatric History (includes Medical, Family, Personal Hx): see HPI Laboratory Data: 05/11/18 07:30 05/11/18 07:30 Lab Results 05/11/18 07:30: TSH 3rd Generation 0.97 05/11/18 07:30: WBC 5.2 D, RBC 4.88, Hgb 13.7 L, Hct 42.2, MCV 86.5, MCH 28.1, MCHC 32.5, RDW 13.5, Plt Count 228, MPV 9.4 05/11/18 07:30: Hemoglobin A1c 5.5 05/11/18 07:30: Iron 39 L, TIBC 297, % Saturation 13 L 05/11/18 07:30: Sodium 137, Potassium 4.5, Chloride 102, Carbon Dioxide 31, Anion Gap 9 L, BUN 15, Creatinine 1.0, Est GFR ( Amer) > 60, Est GFR (Non -Af Amer) > 60, Random Glucose 90, Calcium 9.0, Triglycerides 51, Cholesterol 134, LDL Cholesterol Direct 85, HDL Cholesterol 51, Vitamin B12 579, Folate 10.8 05/09/18 06:45: RPR Nonreactive 05/09/18 06:45: Free T4 1.01, TSH 3rd Generation 0.21 L 05/09/18 06:45: Fasting Glucose 84, Triglycerides 49, Cholesterol 136, LDL Cho lesterol Direct 87, HDL Cholesterol 47 05/08/18 09:00: Urine Opiates Screen Negative, Urine Methadone Screen Negative, Ur Barbiturates Screen Negative, Ur Phencyclidine Scrn Negative, Ur Amphetamines Screen Negative, U Benzodiazepines Scrn Negative, U Oth Cocaine Metabols Ne gative, U Cannabinoids Screen Positive H 05/08/18 09:00: Urine Color Yellow, Urine Appearance Clear, Urine pH 7.5, Ur Specific [place] 1.020, Urine Protein Negative, Urine Glucose (UA) Negative, Urine Ketones Negative, Urine Blood Negative, Urine Nitrate Negative, Urine Bilirubin Small H, Urine Urobilinogen 1.0 H, Ur Leukocyte Esterase Negative 05/08/18 07:52: Alcohol, Quantitative < 10 05/08/18 07:52: Salicylates < 1 L, Acetaminophen < 10.0 L 05/08/18 07:52: Sodium 141, Potassium 3.8, Chloride 102, Carbon Dioxide 32, Anion Gap 11, BUN 8, Creatinine 1.0, Est GFR ( Amer) > 60, Est GFR (Non- Af Amer) > 60, Random Glucose 84, Calcium 9.4, Total Bilirubin 0.4, AST 41, ALT 25, Alkaline Phosphatase 70, Total Protein 8.1, Albumin 4.6, Globulin 3.6, Albumin/Globulin Ratio 1.3 05/08/18 07:52: WBC 4.0 L, RBC 4.97, Hgb 14.8, Hct 43.6, MCV 87.7, MCH 29.8, MCHC 33.9, RDW 13.3, Plt Count 283, MPV 9.3, Gran % 42.1 L, Lymph % (Auto) 45.8 H, [place] % (Auto) 9.3 H, Eos % (Auto) 2.5, Baso % (Auto) 0.3, Gran # 1.67, Lymph # (Auto) 1.8, [place] # (Auto) 0.4, Eos # (Auto) 0.1, Baso # (Auto) 0.01 Vital Signs Temp Pulse Resp BP Pulse Ox 05/14/18 06:47 98.0 F 80 20 124/72 05/13/18 07:30 98.0 F 90 20 121/49 L 05/12/18 16:40 78 130/80 05/12/18 06:51 97.3 F L 76 16 121/69 97 05/11/18 16:01 78 135/72 05/10/18 16:00 82 120/62 05/10/18 07:23 98.4 F 56 L 20 101/44 L 05/09/18 15:00 58 L 126/61 05/09/18 07:19 98.6 F 50 L 20 98/53 L 05/08/18 15:37 52 L 109/56 L 05/08/18 14:00 20 05/08/18 11:00 98.4 F 68 20 104/64 98 05/08/18 10:52 97.9 F 75 18 124/72 99 05/08/18 10:22 97.9 F 79 16 125/80 98 05/08/18 07:35 97.7 F 77 18 127/77 99 Consultations:: List each consultation separately and include: 1. Reason for request. 2. Findings. 3. Follow-up Consultations: patient was seen by medical team see notes for more detailed information Summary of Hospital Course include:: 1. Description of specific treatment plan utilized for patients during their course of treatmen. 2. Summarize the time- course for resolution of acute symptoms and/or regressed behaviors. 3. Describe issues identified and worked on during hospitalization. 4. Describe medication utilized. 5. Describe medical problems identified and treated. 6. Reassessment of suicide risk Summary of Hospital Course: shortly patient is 22 year old -[place] male, whose past psychiatric history included mood spectrum disorder as well as psychosis, patient has 1 psychiatric admission in July 2017, patient has history of impulsive behavior, patient did not follow up with outpatient psychiatrist after discharge, stopped taking his medications, patient came to the hospital looking for help for his depressive symptoms, inability to function, possible suicidal and homicidal ideation, disorganized thoughts and behavior. patient requires further hospitalization, observation, medication resumption and titration. Patient was seen at the treatment team meeting, patient presented to be odd, circumstantial and tangential thought process, patient also presented to be disorganized and psychotic. acceptable personal hygiene, good ADLs. Patient is poor and unreliable historian due to disorganized thoughts,very hard to interview, patient answers or not related to questions being asked, hard to be redirected. please see admission note for more detailed information 05/08/18 07:52 05/08/18 07:52 Lab Results 05/08/18 09:00: Urine Opiates Screen Negative, Urine Methadone Screen Negative, Ur Barbiturates Screen Negative, Ur Phencyclidine Scrn Negative, Ur Amphetamines Screen Negative, U Benzodiazepines Scrn Negative, U Oth Cocaine Metabols Negative, U Cannabinoids Screen Positive H 05/08/18 09:00: Urine Color Yellow, Urine Appearance Clear, Urine pH 7.5, Ur Specific [place] 1.020, Urine Protein Negative, Urine Glucose (UA) Negative, Urine Ketones Negative, Urine Blood Negative, Urine Nitrate Negative, Urine Bilirubin Small H, Urine Urobilinogen 1.0 H, Ur Leukocyte Esterase Negative 05/08/18 07:52: Alcohol, Quantitative < 10 05/08/18 07:52: Salicylates < 1 L, Acetaminophen < 10.0 L 05/08/18 07:52: Sodium 141, Potassium 3.8, Chloride 102, Carbon Dioxide 32, Anion Gap 11, BUN 8, Creatinine 1.0, Est GFR ( Amer) > 60, Est GFR (Non- Af Amer) > 60, Random Glucose 84, Calcium 9.4, Total Bilirubin 0.4, AST 41, ALT 25, Alkaline Phosphatase 70, Total Protein 8.1, Albumin 4.6, Globulin 3.6, Albumin/Globulin Ratio 1.3 05/08/18 07:52: WBC 4.0 L, RBC 4.97, Hgb 14.8, Hct 43.6, MCV 87.7, MCH 29.8, MCHC 33.9, RDW 13.3, Plt Count 283, MPV 9.3, Gran % 42.1 L, Lymph % (Auto) 45.8 H, [place] % (Auto) 9.3 H, Eos % (Auto) 2.5, Baso % (Auto) 0.3, Gran # 1.67, Lymph # (Auto) 1.8, [place] # (Auto) 0.4, Eos # (Auto) 0.1, Baso # (Auto) 0.01 Vital Signs Temp Pulse Resp BP Pulse Ox 05/08/18 15:37 52 L 109/56 L 05/08/18 14:00 20 05/08/18 10:52 97.9 F 75 18 124/72 99 05/08/18 10:22 97.9 F 79 16 125/80 98 05/08/18 07:35 97.7 F 77 18 127/77 99 pt was stabilized on the following meds: depakote 250mg po bid for mood stabilization risperdal 1mg po bid for psychosis and impulsive behavior pt tolerated meds well, no side effects observed or reported, AIMS 0, no EPS. pt did not want his family to be involved. Over the course of this hospitalization pt was attending groups, pt also had medication management, had therapeutic milieu. Overall pt improved significantly, pt's affect became brighter, pt was less depressed, has realistic future oriented plans, pt also does not appear to be psychotic, or anxious, pt was socially appropriate, no behavioral issues, pts insight improved as well and soon pt deemed to be ready for discharge. At the time of the discharge pt denied been depressed, denied thoughts of harming self or others, denied psychotic symptoms, and pt does not appeared to be psychotic, denied been anxious, pt is not in imminent danger to self or others, pt was referred to outpatient program, information about follow up appointment, time and address provided to the pt, it is patient responsibility to follow up with outpatient clinic, PMD as well as specialists (see SW note for more detailed information). In case pt will need to obtain results of studies pending at discharge pt was provided with contact information of Psychiatric Inpatient unit [phone] as well as Medical Record Department [phone]. pt was provided with prescriptions for all of medications (please see medication reconciliation form) Pt was educated about safety plan in case of worsening of symptoms or in case of suicidal or homicidal ideation call 911 or go to the nearest ER, also was educated to take meds as prescribed and stay away from drugs, pt verbalized understanding. - Diagnosis (1) Psychosis Current Visit: Yes Status: Acute Priority: Medium (2) Mood disorder Current Visit: Yes Status: Chronic Priority: Medium - Final Diagnosis (DSM 5) Condition upon Discharge: IMPROVED Disposition: HOME/ ROUTINE Follow-up Treatment Plan: Over the course of this hospitalization pt was attending groups, pt also had medication management, had therapeutic milieu. Overall pt improved significantly, pt's affect became brighter, pt was less depressed, has realistic future oriented plans, pt also does not appear to be psychotic, or anxious, pt was socially appropriate, no behavioral issues, pts insight improved as well and soon pt deemed to be ready for discharge. At the time of the discharge pt denied been depressed, denied thoughts of harming self or others, denied psychotic symptoms, and pt does not appeared to be psychotic, denied been anxious, pt is not in imminent danger to self or others, pt was referred to outpatient program, information about follow up appointment, time and address provided to the pt, it is patient responsibility to follow up with outpatient clinic, PMD as well as specialists (see note for more detailed information). In case pt will need to obtain results of studies pending at discharge pt was provided with contact information of Psychiatric Inpatient unit [phone] as well as Medical Record Department [phone]. Naltrexone treatment not indicated at this time. Counseling about smoking and alcohol cessation provided AA meetings as well as smoking cessation treatment program information was provided by the pt was provided with prescriptions for all of medications (please see medication reconciliation form) Pt was educated about safety plan in case of worsening of symptoms or in case of suicidal or homicidal ideation call 911 or go to the nearest ER, also was educated to take meds as prescribed and stay away from drugs, pt verbalized understanding. Prescriptions/Medication Reconciliation: Divalproex [Depakote DR (*BID*)] 250 mg PO [facility] #30 tcp risperiDONE [RisperDAL Tab] 1 mg PO [facility] #30 tab - Smoking Cessation Smoking Cessation Medication prescribed: No Reason for not providing: denied smoking - Antipsychotic Medications Pt discharged on 2 or more routine antipsychotic medications: No
== END 2018-05-14 16:45 | disposition home or self-care (01) | DRG 885 ==
LOC: ED 07:35 → ERH 10:23 → PSYC 12:09
PROVIDERS: ADMIT Psychiatry & Neurology Psychiatry; ATTEND Psychiatry & Neurology Psychiatry
DX: F31.30 Bipolar disorder, current episode depressed, mild or moderate severity, unspecified (principal); R45.851 Suicidal ideations; F20.9 Schizophrenia, unspecified; D50.9 Iron deficiency anemia, unspecified; D72.819 Decreased white blood cell count, unspecified; E03.9 Hypothyroidism, unspecified; E05.90 Thyrotoxicosis, unspecified without thyrotoxic crisis or storm; F12.90 Cannabis use, unspecified, uncomplicated; F17.210 Nicotine dependence, cigarettes, uncomplicated; K21.9 Gastro-esophageal reflux disease without esophagitis; M41.9 Scoliosis, unspecified